=== PATIENT | female | born 1955 | race American Indian/Alaskan Native ===

== ENCOUNTER 2021-12-07 20:47 | Inpatient (IN) | payer MEDICARE ==
[2021-12-07 21:39] LABS: Hematocrit 35.6 % (30.3-42.9); Hemoglobin 11.6 gm/dl (10.1-14.3); Mean Corpuscular HGB Conc 33 % (30-34); Mean Corpuscular Volume 82 fl (79-97); Platelet Count 216 K/mm3 (140-440); Red Blood Count 4.37 M/mm3 (3.65-5.03)
--- NOTE | 2021-12-07 21:46 | XRay Report ---
CHEST 1 VIEW 12/07/2021 9:25 PM INDICATION / CLINICAL INFORMATION: EDI. History of CHF, COPD, hypertension and morbid obesity. COMPARISON: None available. FINDINGS: SUPPORT DEVICES: None. HEART / MEDIASTINUM: The cardiac silhouette is mildly enlarged with central vascular congestion. LUNGS / PLEURA: There are mild generalized bilateral interstitial opacities along with probable bibas ilar atelectasis. No significant pleural effusion. No pneumothorax. ADDITIONAL FINDINGS: No significant additional findings. IMPRESSION: 1. Suspected acute exacerbation of CHF with possible early interstitial edema. Please correlate with the clinical findings. Signer Name: Ammon Elizalde MD Signed: 12/07/2021 9:41 PM Workstation Name: [id number]
[2021-12-07 21:58] LABS: Albumin 3.4 g/dL (3.9-5); Calcium 9.6 mg/dL (8.4-10.2)
--- NOTE | 2021-12-07 23:29 | Emergency Department Report ---
ED Shortness of Breath HPI - General Chief Complaint: Dyspnea/Respdistress Stated Complaint: EDI Time Seen by Provider: 12/07/21 21:36 Source: patient, EMS Mode of arrival: Stretcher Limitations: Other - History of Present Illness Initial Comments: 66-year-old female with history of CHF, COPD, hypertension who now presented with shortness of breath that started about 3 days ago now progressively getting worse. Patient is currently on Lasix and states that she has been taking it faithfully. According to EMS patient's oxygen level was 60% on presentation to the [place]. She was started on non nonrebreather with improvement in symptoms. Patient reports some nonproductive cough. No other modifying or associated factors reported. MD Complaint: shortness of breath - Related Data Allergies Allergy/AdvReac Type Severity Reaction Status Date / Time quinapril Allergy Swelling Verified 12/07/21 21:11 ED Review of Systems ROS: Stated complaint: EDI Other details as noted in HPI Comment: All other systems reviewed and negative Respiratory: cough, shortness of breath, SOB with exertion, SOB at rest ED Past Medical Hx - Past Medical History Previous Medical History?: Yes Hx Hypertension: Yes Hx Congestive Heart Failure: Yes Hx COPD: Yes Additional medical history: Morbid Obesity. Thyroid Disease - Surgical History Past Surgical History?: No - Social History Smoking Status: Never Smoker Substance Use Type: None ED Physical Exam - General Limitations: No Limitations, Other General appearance: alert, in no apparent distress - Head Head exam: Present: normal inspection - Eye Eye exam: Present: normal appearance Pupils: Present: normal accommodation - ENT ENT exam: Present: normal exam, normal orophraynx, mucous membranes moist - Neck Neck exam: Present: normal inspection, full ROM. Absent: tenderness - Respiratory Respiratory exam: Present: other (Distant heart sound) - Cardiovascular Cardiovascular Exam: Present: regular rate, normal rhythm, other (Distant heart sounds) - GI/Abdominal GI/Abdominal exam: Present: soft, normal bowel sounds. Absent: tenderness - Extremities Exam Extremities exam: Present: normal inspection, normal capillary refill. Absent: tenderness - Back Exam Back exam: Absent: tenderness - Neurological Exam Neurological exam: Present: alert, oriented X3 - Psychiatric Psychiatric exam: Present: normal affect - Skin Skin exam: Present: warm, normal color ED Course Vital Signs 12/07/21 12/07/21 12/07/21 20:55 21:16 21:17 Temperature 98 F 100 F H Pulse Rate 111 H 105 H Respiratory 18 18 Rate Blood Pressure 143/89 Blood Pressure 109/67 [Right] O2 Sat by Pulse 95 96 Oximetry 12/07/21 12/07/21 12/07/21 21:30 21:46 22:00 Temperature Pulse Rate 104 H 109 H 105 H Respiratory 22 25 H 21 Rate Blood Pressure 108/74 127/63 144/77 Blood Pressure [Right] O2 Sat by Pulse 97 84 99 Oximetry 12/07/21 12/07/21 12/07/21 22:16 22:30 22:46 Temperature Pulse Rate 106 H 103 H 105 H Respiratory 25 H 26 H 25 H Rate Blood Pressure 139/78 145/82 128/58 Blood Pressure [Right] O2 Sat by Pulse 98 98 98 Oximetry 12/07/21 12/07/21 12/07/21 23:00 23:12 23:30 Temperature Pulse Rate 104 H 102 H 101 H Respiratory 22 22 24 Rate Blood Pressure 129/66 143/75 132/78 Blood Pressure [Right] O2 Sat by Pulse 97 98 97 Oximetry 12/08/21 12/08/21 12/08/21 00:00 00:30 01:00 Temperature Pulse Rate 102 H 99 H 99 H Respiratory 21 23 20 Rate Blood Pressure 129/76 132/78 141/75 Blood Pressure [Right] O2 Sat by Pulse 98 95 94 Oximetry 12/08/21 12/08/21 12/08/21 01:30 02:00 02:30 Temperature Pulse Rate 99 H 97 H 100 H Respiratory 20 20 21 Rate Blood Pressure 122/84 136/75 137/79 Blood Pressure [Right] O2 Sat by Pulse 98 97 91 Oximetry 12/08/21 03:00 Temperature Pulse Rate 100 H Respiratory 22 Rate Blood Pressure 124/76 Blood Pressure [Right] O2 Sat by Pulse 94 Oximetry - Reevaluation(s) Reevaluation #1: 12/07/21 23:27 here with sob with h/o CHF and COPD -- noted with distance heart sound -- will go ahead and get dyspnea workup and treat-- Reevaluation #2: 12/07/21 23:33 CXR noted with possible CHF with early vascular congestion--coupled with elevated BNP at 4313, troponin at 0.098 and BUN at 46 over 1.5 which likely contributed to the exacerbation. Will go ahead and give Laxis 40 mg IV x 1-- and breathing treatment-- 12/08/21 03:42 Considering this to be the only visit and record available -- will go ahead and admit to Dr Devries for further evaluation-- who accept pt ED Medical Decision Making - Lab Data Result diagrams: 12/07/21 21:23 12/07/21 21:23 Critical care attestation.: If time is entered above; I have spent that time in minutes in the direct care of this critically ill patient, excluding procedure time. ED Disposition Clinical Impression: Dyspnea Qualifiers: Dyspnea type: unspecified Qualified Code(s): R06.00 - Dyspnea, unspecified CHF exacerbation Qualifiers: Heart failure type: unspecified Qualified Code(s): I50.9 - Heart failure, unspecified Disposition: 09 ADMITTED INPATIENT Is pt being admited?: Yes Does the pt Need Aspirin: No Condition: Stable Time of Disposition: 03:44 (Dr Devries consulted who accept pt)
[2021-12-07] MEDS ORDERED: FUROSEMIDE 40 MG/4 ML INJ IV ONE (23:35)
[2021-12-07 23:36] LABS: Basophils % (Manual) 0 % (0.0-1.8); Eosinophils % (Manual) 0 % (0.0-4.3); Total Cells Counted 100
[2021-12-07 23:37] LABS: Anisocytosis 1+; Giant Platelets Rare; Large Platelets Few; Platelet Estimate Consistent w Auto
[2021-12-08] MEDS ORDERED: MORPHINE 2 MG/1 ML INJ IV PRN ×3 (03:45→05:19)
[2021-12-08] MEDS ORDERED: ONDANSETRON 4 MG/2 ML INJ IV PRN ×2 (03:45→05:19)
[2021-12-08] MEDS ORDERED: ACETAMINOPHEN 325 MG TAB PO PRN (03:45)
[2021-12-08] MEDS ORDERED: MORPHINE 4 MG/1 ML INJ IV PRN (05:19)
[2021-12-08] MEDS ORDERED: MAGNESIUM HYDROXIDE (MOM) ORAL LIQD UDC PO PRN (05:19)
--- NOTE | 2021-12-08 05:31 | History and Physical Report ---
History of Present Illness Date of examination: 12/08/21 Date of admission: 12/08/21 03:45 Chief complaint: Shortness of breath History of present illness: 66-year-old female with known history of CHF, COPD, hypertension presenting to the emergency room via EMS today complaining of shortness of breath has been getting progressively worse. She indicates she has been compliant with her medications. In route to the hospital patient's oxygen saturation was about 60%. She was subsequently placed on nonrebreather with some improvement. She complains of some mild cough but denies any chest pain. Denies any nausea or vomiting, denies any fever or chills. Work-up in the emergency room today, lab reveals a BUN of 46 and creatinine 1.5. Troponin of 0.098, BNP of 4313. Chest x-ray suggest acute exacerbation of CHF. Past History Past Medical History: COPD, heart failure, hypertension, hypothyroidism, other (Morbid obesity) Past Surgical History: No surgical history Social history: no significant social history Family history: no significant family history Medications and Allergies Allergies Allergy/AdvReac Type Severity Reaction Status Date / Time quinapril Allergy Swelling Verified 12/07/21 21:11 Active Meds: Active Medications Acetaminophen (Acetaminophen 325 Mg Tab) 650 mg PO Q4H PRN PRN Reason: Pain MILD(1-3)/Fever >100.5/HENDRIX Morphine Sulfate (Morphine 2 Mg/1 Ml Inj) 2 mg IV Q4H PRN PRN Reason: Pain, Moderate (4-6) Ondansetron HCl (Ondansetron 4 Mg/2 Ml Inj) 4 mg IV Q8H PRN PRN Reason: Nausea And Vomiting Sodium Chloride (Sodium Chloride 0.9% 10 Ml Flush Syringe) 10 ml IV BID SHANELL Sodium Chloride (Sodium Chloride 0.9% 10 Ml Flush Syringe) 10 ml IV PRN PRN PRN Reason: LINE FLUSH Review of Systems Constitutional: no fever, no chills Ears, nose, mouth and throat: no nasal congestion, no sore throat Cardiovascular: no chest pain, no palpitations Respiratory: shortness of breath, no cough Gastrointestinal: no nausea, no vomiting, no diarrhea Genitourinary Female: no flank pain, no dysuria, no hematuria Musculoskeletal: no neck pain, no low back pain Integumentary: no rash, no pruritis Neurological: no headaches, no confusion Psychiatric: no anxiety, no depression Endocrine: no polyphagia, no polydipsia, no polyuria, no nocturia Exam - Constitutional Vitals: Temp Pulse Resp BP Pulse Ox 100 F H 100 H 22 124/76 94 12/07/21 21:17 12/08/21 03:00 12/08/21 03:00 12/08/21 03:00 12/08/21 03:00 General appearance: Present: no acute distress, well-nourished, obese - EENT Eyes: Present: PERRL, EOM intact. Absent: scleral icterus ENT: hearing intact, clear oral mucosa, dentition normal - Neck Neck: Present: normal ROM - Respiratory Respiratory effort: normal Respiratory: bilateral: rales - Cardiovascular Rhythm: regular Heart Sounds: Present: S1 & S2, gallop. Absent: systolic murmur, diastolic m urmur, rub, click - Extremities Extremities: no ischemia, pulses intact, pulses symmetrical, normal temperature, normal color, Full ROM Extremity abnormal: edema (2+ ankle edema) Peripheral Pulses: within normal limits - Abdominal General gastrointestinal: Present: soft, non-tender - Integumentary Integumentary: Present: clear, warm, dry, normal turgor. Absent: rash - Musculoskeletal Musculoskeletal: strength equal bilaterally - Psychiatric Psychiatric: appropriate mood/affect, intact judgment & insight, memory intact, cooperative - Neurologic Neurologic: CNII-XII intact, no focal deficits, moves all extremities HEART Score - HEART Score Troponin: Troponin T 0.098 ng/mL (0.00-0.029) H 12/07/21 21: Results - Labs CBC & Chem 7: 12/07/21 21:23 12/07/21 21:23 Labs: Abnormal lab results 12/07/21 12/07/21 12/07/21 Range/Units 21:23 21: 21: WBC 14.1 H (4.5-11.0) K/mm3 MCH 27 L (28-32) pg Seg Neuts % (Manual) 84.0 H (40.0-70.0) % Nucleated RBC % 4.0 H (0.0-0.9) % Seg Neutrophils # Man 11.8 H (1.8-7.7) K/mm3 Sodium 146 H (137-145) mmol/L BUN 46 H (7-17) mg/dL Creatinine 1.5 H (0.6-1.2) mg/dL Glucose 137 H (65-100) mg/dL Total Bilirubin 1.60 H (0.1-1.2) mg/dL AST 98 H (5-40) units/L Alkaline Phosphatase 191 H (35-129) units/L Troponin T 0.098 H (0.00-0.029) ng/mL NT-Pro-B Natriuret Pep 4313 H (0-900) pg/mL Albumin 3.4 L (3.9-5) g/dL Assessment and Plan - Patient Problems (1) CHF exacerbation Current Visit: Yes Status: Acute Qualifiers: Heart failure type: unspecified Qualified Code(s): I50.9 - Heart failure, unspecified Plan to address problem: Patient placed on diuretics. We will monitor input and output and also monitor daily weight. We will schedule for echocardiogram. Consult placed to cardiology for evaluation. (2) Hypertension Current Visit: Yes Status: Acute Plan to address problem: We will resume routine home medications and monitor vital signs closely. (3) RAMA (acute kidney injury) Current Visit: Yes Status: Acute Plan to address problem: Baseline BUN and creatinine unknown. Consult nephrology for evaluation. (4) DVT prophylaxis Current Visit: Yes Status: Acute Plan to address problem: Patient placed on subcutaneous heparin. (5) Full code status Current Visit: Yes Status: Acute Plan to address problem: Patient is full code.
--- NOTE | 2021-12-08 08:07 | Progress Note ---
Assessment and Plan Assessment and plan: Acute versus acute on chronic congestive heart failure: unknown ejection fraction patient has elevated proBNP findings of congestive heart failure on chest x-ray elevated troponin IV diuretics beta-blockers input output monitoring Daily weights low-sodium diet and fluid restriction follow echocardiogram for LV function ejection fraction follow cardiology evaluation and recommendations Elevated troponin/non-ST elevation VA probably type II Closely monitor cardiac enzymes, serial EKGs, follow echocardiogram Continue aspirin beta-blockers JOSÉ ANTONIO inhibitors nitrates and statins Cardiology consulted Acute kidney injury; vasomotor nephropathy Monitor renal function, avoid nephrotoxin, consult nephrology if no improvement Also consider renal ultrasound Elevated LFTs/probably secondary to liver congestion Patient does not have any history of alcohol use Closely monitor Dyslipidemia : Low-cholesterol diet Patient's LFTs are high unable to give statin Closely monitor History of hypothyroidism ; Resume home Synthroid Closely monitor check thyroid functions morbid obesity; BMI 67.0; Patient may need dietary modification, exercise as tolerated and weight reduction when he is medically stable His weight partly secondary to fluid overload and congestive heart failure Treat the underlying cause. Full CODE STATUS; DVT prophylaxis; Subcu Lovenox renal dose Advance care plan: Patient is in severe distress, patient's diagnosis discussed with the patient Patient reports discussed with the patient, treatment plan explained to the patient Cardiology consultation and nephrology consultation recommendations discussed with the patient Patient also started on nebulizers, tapering dose of IV steroids, risks and benefits discussed with the patient Answered all the patient's questions and addressed all the concerns. Additional time 30 minutes Prolonged care inpatient: 35 minutes History Interval history: I have seen and examined the patient at the bedside this afternoon Patient's chart and medications reviewed Morbidly obese female patient in no acute respiratory failure requiring supplemental oxygen Patient is severely hypoxemic on Ventimask 15 L 40% saturating 98% Vital signs reviewed Hospitalist Physical - Constitutional Vitals: Temp Pulse Resp BP Pulse Ox 97.2 F L 91 H 18 117/72 98 12/08/21 05:49 12/08/21 05:49 12/08/21 05:49 12/08/21 05:49 12/08/21 05:49 General appearance: Present: no acute distress, well-nourished, obese - EENT Eyes: Present: PERRL, EOM intact - Neck Neck: Present: supple, normal ROM - Respiratory Respiratory effort: normal Respiratory: bilateral: CTA, diminished - Cardiovascular Rhythm: regular Heart Sounds: Present: S1 & S2 - Extremities Extremities: no ischemia, pulses intact, pulses symmetrical - Abdominal General gastrointestinal: soft, non-tender, non-distended, normal bowel sounds - Integumentary Integumentary: Present: clear, warm - Psychiatric Psychiatric: appropriate mood/affect, cooperative - Neurologic Neurologic: CNII-XII intact, moves all extremities HEART Score - HEART Score Troponin: Troponin T 0.098 ng/mL (0.00-0.029) H 12/07/21 21: Results - Labs CBC & Chem 7: 12/07/21 21:23 12/08/21 09:41 Labs: Laboratory Last Values WBC 14.1 K/mm3 (4.5-11.0) H 12/07/21 21: RBC 4.37 M/mm3 (3.65-5.03) 12/07/21 21: Hgb 11.6 gm/dl (10.1-14.3) 12/07/21 21: Hct 35.6 % (30.3-42.9) 12/07/21 21: MCV 82 fl (79-97) 12/07/21 21: MCH 27 pg (28-32) L 12/07/21 21: MCHC 33 % (30-34) 12/07/21 21: RDW 15.0 % (13.2-15.2) 12/07/21 21: Plt Count 216 K/mm3 (140-440) 12/07/21 21:23 Add Manual Diff Complete 12/07/21 21: Total Counted 100 12/07/21 21: Seg Neuts % (Manual) 84.0 % (40.0-70.0) H 12/07/21 21: Band Neutrophils % 0 % 12/07/21 21: Lymphocytes % (Manual) 14.0 % (13.4-35.0) 12/07/21 21: Reactive Lymphs % (Man) 0 % 12/07/21 21: Monocytes % (Manual) 2.0 % (0.0-7.3) 12/07/21 21: Eosinophils % (Manual) 0 % (0.0-4.3) 12/07/21 21: Basophils % (Manual) 0 % (0.0-1.8) 12/07/21: Metamyelocytes % 0 % 12/07/21 21: Myelocytes % 0 % 12/07/21 21: Promyelocytes % 0 % 12/07/21 21: Blast Cells % 0 % 12/07/21 21: Nucleated RBC % 4.0 % (0.0-0.9) H 12/07/21 21: Seg Neutrophils # Man 11.8 K/mm3 (1.8-7.7) H 12/07/21 21: Band Neutrophils # 0.0 K/mm3 12/07/21 21: Lymphocytes # (Manual) 2.0 K/mm3 (1.2-5.4) 12/07/21 21: Abs React Lymphs (Man) 0.0 K/mm3 12/07/21 21: Monocytes # (Manual) 0.3 K/mm3 (0.0-0.8) 12/07/21 21: Eosinophils # (Manual) 0.0 K/mm3 (0.0-0.4) 12/07/21 21: Basophils # (Manual) 0.0 K/mm3 (0.0-0.1) 12/07/21 21: Metamyelocytes # 0.0 K/mm3 12/07/21 21: Myelocytes # 0.0 K/mm3 12/07/21 21: Promyelocytes # 0.0 K/mm3 12/07/21 21: Blast Cells # 0.0 K/mm3 12/07/21 21:23 WBC Morphology Not Reportable 12/07/21 21:23 Hypersegmented Neuts Not Reportable 12/07/21 21:23 Hyposegmented Neuts Not Reportable 12/07/21 21:23 Hypogranular Neuts Not Reportable 12/07/21 21:23 Smudge Cells Not Reportable 12/07/21 21:23 Toxic Granulation Not Reportable 12/07/21 21:23 Toxic Vacuolation Not Reportable 12/07/21 21:23 Dohle Bodies Not Reportable 12/07/21 21:23 Pelger-Huet Anomaly Not Reportable 12/07/21 21:23 Fernanda Rods Not Reportable 12/07/21 21:23 Platelet Estimate Consistent w auto 12/07/21 21:23 Clumped Platelets Not Reportable 12/07/21 21:23 Plt Clumps, EDTA Not Reportable 12/07/21 21:23 Large Platelets Few 12/07/21 21:23 Giant Platelets Rare 12/07/21 21:23 Platelet Satelliting Not Reportable 12/07/21 21:23 Plt Morphology Comment Not Reportable 12/07/21 21:23 RBC Morphology Not Reportable 12/07/21 21:23 Dimorphic RBCs Not Reportable 12/07/21 21:23 Polychromasia Not Reportable 12/07/21 21:23 Hypochromasia Not Reportable 12/07/21 21:23 Poikilocytosis Not Reportable 12/07/21 21:23 Anisocytosis 1+ 12/07/21 21:23 Microcytosis Not Reportable 12/07/21 21:23 Macrocytosis Not Reportable 12/07/21 21:23 Spherocytes Not Reportable 12/07/21 21:23 Pappenheimer Bodies Not Reportable 12/07/21 21:23 Sickle Cells Not Reportable 12/07/21 21:23 Target Cells Not Reportable 12/07/21 21:23 Tear Drop Cells Not Reportable 12/07/21 21:23 Ovalocytes Not Reportable 12/07/21 21:23 Helmet Cells Not Reportable 12/07/21 21:23 [place] Bodies Not Reportable 12/07/21 21:23 [place] Rings Not Reportable 12/07/21 21:23 Ronni Cells Not Reportable 12/07/21 21:23 Bite Cells Not Reportable 12/07/21 21:23 Crenated Cell Not Reportable 12/07/21 21:23 Elliptocytes Not Reportable 12/07/21 21:23 Acanthocytes (Spur) Not Reportable 12/07/21 21:23 Rouleaux Not Reportable 12/07/21 21:23 Hemoglobin C Crystals Not Reportable 12/07/21 21:23 Schistocytes Not Reportable 12/07/21 21:23 Malaria parasites Not Reportable 12/07/21 21:23 Aftab Bodies Not Reportable 12/07/21 21:23 Hem Pathologist Commnt No 12/07/21 21:23 Sodium 146 mmol/L (137-145) H 12/07/21 21:23 Potassium 3.8 mmol/L (3.6-5.0) 12/07/21 21: Chloride 102.4 mmol/L (98-107) 12/07/21 21: Carbon Dioxide 22 mmol/L (22-30) 12/07/21 21: Anion Gap 25 mmol/L 12/07/21 21:23 BUN 46 mg/dL (7-17) H 12/07/21 21:23 Creatinine 1.5 mg/dL (0.6-1.2) H 12/07/21 21:23 Estimated GFR 35 ml/min 12/07/21 21: BUN/Creatinine Ratio 31 % 12/07/21 21:23 Glucose 137 mg/dL (65-100) H 12/07/21 21: Calcium 9.6 mg/dL (8.4-10.2) 12/07/21 21: Total Bilirubin 1.60 mg/dL (0.1-1.2) H 12/07/21 21: AST 98 units/L (5-40) H 12/07/21 21: ALT 39 units/L (7-56) 12/07/21 21: Alkaline Phosphatase 191 units/L (35-129) H 12/07/21 21:23 Troponin T 0.098 ng/mL (0.00-0.029) H 12/07/21 21:23 NT-Pro-B Natriuret Pep 4313 pg/mL (0-900) H 12/07/21 21:23 Total Protein 6.9 g/dL (6.3-8.2) 12/07/21 21: Albumin 3.4 g/dL (3.9-5) L 12/07/21 21:23 Albumin/Globulin Ratio 1.0 % 12/07/21 21:23 Verma/IV: Voiding Method External Female Catheter Active Medications - Current Medications Current Medications: Generic Name Dose Route Start Last Admin Trade Name Freq PRN Reason Stop Dose Admin Acetaminophen 650 mg 12/08/21 05:19 Acetaminophen 325 Mg Tab PO Q4H PRN Pain MILD(1-3)/Fever >100.5/HENDRIX Furosemide 40 mg 12/08/21 06:00 Furosemide 40 Mg/4 Ml Inj IV BID@0600,1800 SHANELL Magnesium Hydroxide 30 ml 12/08/21 05:19 Magnesium Hydroxide (Mom) Oral Liqd Udc PO Q4H PRN Constipation Morphine Sulfate 2 mg 12/08/21 05:19 Morphine 2 Mg/1 Ml Inj IV Q4H PRN Pain, Moderate (4-6) Morphine Sulfate 4 mg 12/08/21 05:19 Morphine 4 Mg/1 Ml Inj IV Q4H PRN Pain , Severe (7-10) Morphine Sulfate 2 mg 12/08/21 05:19 Morphine 2 Mg/1 Ml Inj IV Q5MIN PRN Chest Pain unrelieved by NTG Ondansetron HCl 4 mg 12/08/21 05:19 Ondansetron 4 Mg/2 Ml Inj IV Q8H PRN Nausea And Vomiting Sodium Chloride 10 ml 12/08/21 10:00 Sodium Chloride 0.9% 10 Ml Flush Syringe IV BID SHANELL Sodium Chloride 10 ml 12/08/21 05:19 Sodium Chloride 0.9% 10 Ml Flush Syringe IV PRN PRN LINE FLUSH
[2021-12-08] MEDS: FUROSEMIDE 40 MG/4 ML INJ IV SCH ×2 (09:06→17:32)
[2021-12-08 10:20] LABS: Albumin 3.4 g/dL (3.9-5); Calcium 9.5 mg/dL (8.4-10.2)
[2021-12-08 10:39] LABS: Chol/HDL Ratio 10.36 %
--- NOTE | 2021-12-08 12:19 | Consultation ---
History of Present Illness Consult date: 12/08/21 Consult reason: congestive heart failure History of present illness: 59-year-old obese -[place] female presenting with shortness of breath. Her chest x-ray shows cardiomegaly with pulmonary vascular congestion. Patient admitted with diagnosis of congestive heart failure. Past History Past Medical History: COPD, heart failure, hypertension, hypothyroidism, other (Morbid obesity) Past Surgical History: No surgical history Social history: no significant social history Family history: no significant family history Medications and Allergies Allergies Allergy/AdvReac Type Severity Reaction Status Date / Time quinapril Allergy Swelling Verified 12/07/21 21:11 Home Medications Medication Instructions Recorded Confirmed Last Taken Type Meloxicam 7.5 mg PO BID 12/08/21 12/08/21 12/07/21 History Metolazone 5 mg PO DAILY 12/08/21 12/08/21 12/06/21 History Oxycodone 5 mg PO Q4H PRN 12/08/21 12/08/21 12/05/21 History Torsemide 100 mg PO DAILY 12/08/21 12/08/21 12/07/21 History amLODIPine 10 mg PO DAILY 12/08/21 12/08/21 12/06/21 History Active Meds: Active Medications Acetaminophen (Acetaminophen 325 Mg Tab) 650 mg PO Q4H PRN PRN Reason: Pain MILD(1-3)/Fever >100.5/HENDRIX Furosemide (Furosemide 40 Mg/4 Ml Inj) 40 mg IV BID@0600,1800 SHANELL Last Admin: 12/08/21 09:06 Dose: 40 mg Magnesium Hydroxide (Magnesium Hydroxide (Mom) Oral Liqd Udc) 30 ml PO Q4H PRN PRN Reason: Constipation Morphine Sulfate (Morphine 2 Mg/1 Ml Inj) 2 mg IV Q4H PRN PRN Reason: Pain, Moderate (4-6) Morphine Sulfate (Morphine 4 Mg/1 Ml Inj) 4 mg IV Q4H PRN PRN Reason: Pain , Severe (7-10) Morphine Sulfate (Morphine 2 Mg/1 Ml Inj) 2 mg IV Q5MIN PRN PRN Reason: Chest Pain unrelieved by NTG Ondansetron HCl (Ondansetron 4 Mg/2 Ml Inj) 4 mg IV Q8H PRN PRN Reason: Nausea And Vomiting Sodium Chloride (Sodium Chloride 0.9% 10 Ml Flush Syringe) 10 ml IV BID SHANELL Last Admin: 12/08/21 09:06 Dose: 10 ml Sodium Chloride (Sodium Chloride 0.9% 10 Ml Flush Syringe) 10 ml IV PRN PRN PRN Reason: LINE FLUSH Review of Systems Constitutional: no weight loss, no weight gain, no fatigue, no weakness Ears, nose, mouth and throat: no deferred, no ear pain, no ear discharge Breasts: normal Cardiovascular: no chest pain, no orthopnea Respiratory: cough, cough with sputum, no hemoptysis, no shortness of breath Gastrointestinal: no abdominal pain, no nausea, no vomiting Genitourinary Female: no dyspareunia Rectal: no pain, no incontinence, no bleeding Musculoskeletal: no neck stiffness, no neck pain, no shooting arm pain, no arm numbness/tingling, no low back pain Integumentary: no rash, no pruritis, no redness Neurological: no paralysis, no weakness, no parathesias Psychiatric: no anxiety, no change in appetite Endocrine: no cold intolerance, no heat intolerance, no polyphagia Hematologic/Lymphatic: no easy bruising, no easy bleeding Allergic/Immunologic: no urticaria, no allergic rhinitis, no wheezing Physical Examination Vital Signs Temp Pulse Resp BP Pulse Ox 98 F 111 H 18 143/89 95 12/07/21 20:55 12/07/21 20:55 12/07/21 20:55 12/07/21 20:55 12/07/21 20:55 General appearance: no acute distress, obese HEENT: Positive: PERRL, Normocephaly, Mucus Membranes Moist Neck: Positive: neck supple, trachea midline. Negative: JVD/HJR Cardiac: Positive: Regular Rate, S1/S2, PMI, Dilated, Laterally Displaced Lungs: Positive: clear to auscultation, No Wheeze, Rales, Rhonchi Neuro: Positive: Grossly Intact Abdomen: Positive: Unremarkable, Soft, Active Bowel Sounds Extremities: Present: +1 Edema Results 12/07/21 21:23 12/08/21 09:41 Cardiac Enzymes 12/07/21 12/08/21 Range/Units 21:23 09:41 AST 98 H 99 H (5-40) units/L Lipids 12/08/21 Range/Units 09:41 Triglycerides 310 H (2-149) mg/dL Cholesterol 259 H (50-199) mg/dL HDL Cholesterol 25 L (40-59) mg/dL Cholesterol/HDL Ratio 10.36 % CBC 12/07/21 Range/Units 21:23 WBC 14.1 H (4.5-11.0) K/mm3 RBC 4.37 (3.65-5.03) M/mm3 Hgb 11.6 (10.1-14.3) gm/dl Hct 35.6 (30.3-42.9) % Plt Count 216 (140-440) K/mm3 Comprehensive Metabolic Panel 12/07/21 12/08/21 Range/Units 21:23 09:41 Sodium 146 H 145 (137-145) mmol/L Potassium 3.8 4.2 (3.6-5.0) mmol/L Chloride 102.4 104.0 (98-107) mmol/L Carbon Dioxide 22 25 (22-30) mmol/L BUN 46 H 56 H (7-17) mg/dL Creatinine 1.5 H 1.4 H (0.6-1.2) mg/dL Glucose 137 H 171 H (65-100) mg/dL Calcium 9.6 9.5 (8.4-10.2) mg/dL Direct Bilirubin Cancelled AST 98 H 99 H (5-40) units/L ALT 39 49 (7-56) units/L Alkaline Phosphatase 191 H 232 H (35-129) units/L Total Protein 6.9 6.8 (6.3-8.2) g/dL Albumin 3.4 L 3.4 L (3.9-5) g/dL Assessment and Plan 1. Acute systolic heart failure 2. Essential hypertension 3. Chronic renal disease unspecified 4. Hypothyroidism 5. Morbid obesity. Plan. Patient is currently stable. We will continue diuresing. Echocardiogram to assess global and regional left ventricular systolic function. Treatment as per GDMT
--- NOTE | 2021-12-08 14:11 | Consultation ---
History of Present Illness - History of Present Illness Thank you for the consultation ! Patient was evaluated today, My assessment and plan are as follows #Renal failure in a patient who 66-year-old with known history of COPD hype rtension heart failure admitted here with worsening renal failure and pulmonary vascular congestion, with ongoing use of meloxicam and torsemide, creatinine upon admission was 1.5 with a sodium of 146 and as of today creatinine remains at 1.6. Avoid concurrent use of torsemide and meloxicam preferably I would avoid meloxicam altogether Patiently monitor renal function, no old records of creatinine in our system here. Urinalysis did not show any evidence of significant proteinuria but patient has 11 red blood cell with 1+ bacteria Would like to get a straight cath specimen Suggest avoiding any further use of nonsteroidal drug, #Hypernatremia mild currently improved Hyperbilirubinemia,? Congestive heart failure? NSAID induced currently improving check hepatitis profile Elevated liver enzyme most likely resulting from passive congestion from congestive heart failure, monitor ALT AST closely, stable for now check coagulation studies, Patient is to primarily work on risk factor modifications and lifestyle changes close follow-up upon discharge in a week or 2, She is allergic to JOSÉ ANTONIO inhibitor, Can consider a cautious trial of spironolactone in the outpatient setting at a later date. Patient needs thorough education about CKD as well as CHF management, advised her to get further education from our website and attached links such as [employer] #Congestive heart failure with COPD pending ejection fraction estimation, f you have any question in regards to this patient renal care please feel free to contact me at [phone] Author: Sidney Major M.D. [facility], [address] [place] [address] Tel; [phone] Platter History of present illness Past medical history: 60-year-old female admitted here with worsening of congestive heart failure noted to have elevated creatinine of 1.4-1.6, urinalysis shows 11 red blood cells, creatinine relatively stable current estimated GFR in the range of 35 to 45 cc per minute, normal records in our system, elevated bilirubin at 1.6 but currently improving alkaline phosphate has worsened. Current allergies: Reviewed from the current chart Social history: Reviewed from the current chart Family history: Reviewed from the current chart Review of system: Positive for shortness of breath, All other review of systems negative Physical examination Vitals: Reviewed General: No acute distress HEENT: Oral mucosa moist no pallor or icterus Neck: Supple without any JVD thyromegaly or nodular mass Chest: Bilateral few crackles prolonged expiratory phase Heart: Regular rate and rhythm S1-S2 heard no S3-S4 Abdomen: Soft nontender, bowel sounds present no renal bruit no suprapubic masses no CVA tenderness noted Extremity: Minimal edema dry skin no peripheral cyanosis Endocrine: Thyroid not enlarged Psychiatric: No agitation and aggression noted Musculoskeletal: No joint effusion noted Labs and x-rays: Reviewed from this admission Past History Past Medical History: COPD, heart failure, hypertension, hypothyroidism, other (Morbid obesity) Past Surgical History: No surgical history Social history: no significant social history Family history: no significant family history Medications and Allergies Allergies Allergy/AdvReac Type Severity Reaction Status Date / Time quinapril Allergy Swelling Verified 12/07/21 21:11 Home Medications Medication Instructions Recorded Confirmed Last Taken Type Levothyroxine 100 mcg PO DAILY 12/08/21 12/08/21 12/06/21 History Meloxicam 7.5 mg PO BID 12/08/21 12/08/21 12/07/21 History Metolazone 5 mg PO DAILY 12/08/21 12/08/21 12/06/21 History Oxycodone 5 mg PO Q4H PRN 12/08/21 12/08/21 12/05/21 History Torsemide 100 mg PO DAILY 12/08/21 12/08/21 12/07/21 History amLODIPine 10 mg PO DAILY 12/08/21 12/08/21 12/06/21 History Active Meds: Active Medications Acetaminophen (Acetaminophen 325 Mg Tab) 650 mg PO Q4H PRN PRN Reason: Pain MILD(1-3)/Fever >100.5/HENDRIX Furosemide (Furosemide 40 Mg/4 Ml Inj) 40 mg IV BID@0600,1800 SHANELL Last Admin: 12/08/21 09:06 Dose: 40 mg Magnesium Hydroxide (Magnesium Hydroxide (Mom) Oral Liqd Udc) 30 ml PO Q4H PRN PRN Reason: Constipation Morphine Sulfate (Morphine 2 Mg/1 Ml Inj) 2 mg IV Q4H PRN PRN Reason: Pain, Moderate (4-6) Morphine Sulfate (Morphine 4 Mg/1 Ml Inj) 4 mg IV Q4H PRN PRN Reason: Pain , Severe (7-10) Morphine Sulfate (Morphine 2 Mg/1 Ml Inj) 2 mg IV Q5MIN PRN PRN Reason: Chest Pain unrelieved by NTG Ondansetron HCl (Ondansetron 4 Mg/2 Ml Inj) 4 mg IV Q8H PRN PRN Reason: Nausea And Vomiting Sodium Chloride (Sodium Chloride 0.9% 10 Ml Flush Syringe) 10 ml IV BID SHANELL Last Admin: 12/08/21 09:06 Dose: 10 ml Sodium Chloride (Sodium Chloride 0.9% 10 Ml Flush Syringe) 10 ml IV PRN PRN PRN Reason: LINE FLUSH Exam - Vital Signs Vital signs: Vital Signs Temp Pulse Resp BP Pulse Ox 98 F 111 H 18 143/89 95 12/07/21 20:55 12/07/21 20:55 12/07/21 20:55 12/07/21 20:55 12/07/21 20:55 Results - Lab Results 12/09/21 05:45 12/09/21 05:45 Most recent lab results Calcium 9.5 mg/dL (8.4-10.2) 12/08/21 09:41
[2021-12-08] MEDS ORDERED: IPRATROPIUM/ALBUTEROL SULFATE 3 ML AMPUL.NEB IH SCH (16:30)
[2021-12-08 17:16] LABS: Bacteria,Urine 1+ /HPF (Negative); Bilirubin,Urine NEG (Negative); Blood,Urine SM (Negative); Color,Urine Amber (Yellow); Mucus,Urine FEW /HPF
[2021-12-08] MEDS ORDERED: ALBUTEROL 2.5 MG/3 ML NEBU IH PRN ×2 (17:56→18:00)
[2021-12-08] MEDS: IPRATROPIUM/ALBUTEROL SULFATE 3 ML AMPUL.NEB IH SCH (20:21)
[2021-12-08] MEDS: ARFORMOTEROL 15 MCG/2 ML NEBU IH SCH (20:37)
[2021-12-08] MEDS: BUDESONIDE 0.5 MG/2 ML NEBU IH SCH (20:37)
[2021-12-08] MEDS: methylPREDNISolone Sod Succinate 125 MG/2 ML INJ IV SCH (21:18)
[2021-12-08] MEDS: ACETAMINOPHEN 325 MG TAB PO PRN (21:19)
[2021-12-08 22:27] LABS: C-Reactive Protein 38.6 mg/dL (0.00-1.30)
[2021-12-09] MEDS: MELOXICAM 7.5 MG TAB PO SCH ×4 (02:05→22:40)
[2021-12-09] MEDS: IPRATROPIUM/ALBUTEROL SULFATE 3 ML AMPUL.NEB IH SCH ×4 (02:50→20:35)
[2021-12-09] MEDS: LEVOTHYROXINE 100 MCG TAB PO SCH (05:57)
[2021-12-09] MEDS: FUROSEMIDE 40 MG/4 ML INJ IV SCH ×2 (05:57→17:12)
[2021-12-09] MEDS: methylPREDNISolone Sod Succinate 125 MG/2 ML INJ IV SCH ×3 (05:57→22:41)
[2021-12-09 06:10] LABS: Hematocrit 37.4 % (30.3-42.9); Hemoglobin 11.8 gm/dl (10.1-14.3); Mean Corpuscular HGB Conc 32 % (30-34); Mean Corpuscular Volume 82 fl (79-97); Red Blood Count 4.56 M/mm3 (3.65-5.03)
[2021-12-09 06:13] LABS: Platelet Count 213 K/mm3 (140-440)
[2021-12-09 06:28] LABS: Calcium 10.1 mg/dL (8.4-10.2)
[2021-12-09 07:55] LABS: Anisocytosis 1+; Band Neutrophils # (Manual) 0.2 K/mm3; Basophils % (Manual) 0 % (0.0-1.8); Eosinophils % (Manual) 0 % (0.0-4.3); Hypochromasia 1+; Total Cells Counted 100
[2021-12-09 07:56] LABS: Platelet Estimate Consistent w Auto
[2021-12-09] MEDS: BUDESONIDE 0.5 MG/2 ML NEBU IH SCH ×2 (08:50→20:35)
[2021-12-09] MEDS: ARFORMOTEROL 15 MCG/2 ML NEBU IH SCH ×2 (08:50→20:35)
[2021-12-09] MEDS: ASPIRIN EC 325 MG TAB PO SCH (09:43)
[2021-12-09] MEDS ORDERED: METOLAZONE 5 MG PO SCH (10:00)
--- NOTE | 2021-12-09 12:10 | Electrocardiograph Report ---
[facility] Test Date: 2021-12-07 Test Time: 21:01:52 Pat Name: LYN PEREZ Department: Room: A451 1 Gender: F Clinical Specialist Vascular: rojas : 1955 Requested By: ALFONSO NOEL Order Number: [id number] Reading MD: Gamaliel Bishop Measurements Intervals [place] Rate: 104 P: 77 KS: 174 QRS: -35 QRSD: 86 T: 56 QT: 340 QTc: 448 Interpretive Statements Sinus tachycardia Probable left atrial enlargement Left axis deviation Probable lateral infarct, old No previous ECG available for comparison Electronically Signed On 12-09-2021 12:09:39 EDT by Gamaliel Bishop
--- NOTE | 2021-12-09 12:52 | Progress Note ---
Assessment and Plan 1. Acute systolic heart failure 2. Essential hypertension 3. Chronic renal disease unspecified 4. Hypothyroidism 5. Morbid obesity. Plan. Patient is stable echocardiogram shows normal left ventricular size and function with mild left ventricular diastolic dysfunction grade 1. Patient's congestive heart failure likely secondary to fluid overload from chronic renal insufficiency. There is equal vocal elevation of serum troponin level secondary to decreased clearance. And elevated liver function tests which could be secondary to hepatic congestion. Nephrology consult note appreciated continue diuresis as per nephrology recommendation. Lexiscan thallium scan will be done prior to discharge to rule out underlying ischemic coronary artery disease Subjective Date of service: 12/09/21 Interval history: Patient complains of shortness of breath. And she also has a cough which is nonproductive Objective Vital Signs Temp Pulse Pulse Resp Resp BP BP 12/09/21 12:00 12/09/21 10:53 98.6 F 80 18 101/46 12/09/21 08:50 12/09/21 07:30 98.0 F 83 18 153/84 12/09/21 07:00 81 12/09/21 04:11 98.4 F 80 16 142/70 12/09/21 00:11 98.1 F 88 17 141/61 12/09/21 00:00 17 12/08/21 23:34 86 151/75 12/08/21 22:14 83 12/08/21 21:00 12/08/21 20:35 98.5 F 83 18 128/75 12/08/21 20:22 83 18 12/08/21 17:52 12/08/21 17:00 83 20 12/08/21 15:14 85 12/08/21 15:13 98.9 F 82 18 117/71 Pulse Ox 12/09/21 12:00 95 12/09/21 10:53 96 12/09/21 08:50 95 12/09/21 07:30 98 12/09/21 07:00 12/09/21 04:11 97 12/09/21 00:11 95 12/09/21 00:00 93 12/08/21 23:34 95 12/08/21 22:14 12/08/21 21:00 97 12/08/21 20:35 98 12/08/21 20:22 100 12/08/21 17:52 98 12/08/21 17:00 98 12/08/21 15:14 12/08/21 15:13 98 - Physical Examination General: Other (obese) HEENT: Positive: PERRL, Normocephaly, Mucus Membranes Moist Neck: Positive: neck supple, trachea midline. Negative: JVD/HJR Cardiac: Positive: Regular Rate, S1/S2, PMI, Laterally Displaced. Negative: S3, S4 Lungs: Positive: Rhonchi Neuro: Positive: Grossly Intact Abdomen: Positive: Unremarkable, Soft, Active Bowel Sounds Extremities: Present: +1 Edema - Labs and Meds Cardiac Enzymes 12/08/21 Range/Units 20:37 Lactate Dehydrogenase 344 H (91-180) units/L CBC 12/09/21 Range/Units 05:45 WBC 19.6 H (4.5-11.0) K/mm3 RBC 4.56 (3.65-5.03) M/mm3 Hgb 11.8 (10.1-14.3) gm/dl Hct 37.4 (30.3-42.9) % Plt Count 213 (140-440) K/mm3 Comprehensive Metabolic Panel 12/09/21 Range/Units 05:45 Sodium 142 (137-145) mmol/L Potassium 3.8 (3.6-5.0) mmol/L Chloride 101.2 (98-107) mmol/L Carbon Dioxide 22 (22-30) mmol/L BUN 67 H (7-17) mg/dL Creatinine 1.6 H (0.6-1.2) mg/dL Glucose 159 H (65-100) mg/dL Calcium 10.1 (8.4-10.2) mg/dL
--- NOTE | 2021-12-09 18:29 | Progress Note ---
Assessment and Plan Assessment and plan: --Acute versus acute on chronic congestive heart failure: unknown ejection fraction patient has elevated proBNP findings of congestive heart failure on chest x-ray elevated troponin IV diuretics beta-blockers input output monitoring Daily weights low-sodium diet and fluid restriction follow echocardiogram for LV function ejection fraction follow cardiology evaluation and recommendations --Acute on chronic hypoxic respiratory failure Likely due to underlying obesity hypoventilation syndrome, chronic CHF Patient on 2 L nasal cannula O2 at home Wean off O2 as tolerated, nebs as needed --Elevated troponin/non-ST elevation [place] probably type II Closely monitor cardiac enzymes, serial EKGs, follow echocardiogram Continue aspirin beta-blockers JOSÉ ANTONIO inhibitors nitrates and statins Cardiology consulted --Acute kidney injury; vasomotor nephropathy Monitor renal function, avoid nephrotoxin, consult nephrology if no improvement Also consider renal ultrasound --Elevated LFTs/probably secondary to liver congestion Patient does not have any history of alcohol use Closely monitor --Dyslipidemia : Low-cholesterol diet Patient's LFTs are high unable to give statin Closely monitor --History of hypothyroidism ; Resume home Synthroid Closely monitor check thyroid functions --morbid obesity; BMI 67.0; Patient may need dietary modification, exercise as tolerated and weight reduction when he is medically stable His weight partly secondary to fluid overload and congestive heart failure Treat the underlying cause. --Oral thrush, placed on nystatin swish and swallow --Full CODE STATUS; --DVT prophylaxis; Subcu Lovenox renal dose --Advance care plan: Patient is in severe distress, patient's diagnosis discussed with the patient Patient reports discussed with the patient, treatment plan explained to the patient Cardiology consultation and nephrology consultation recommendations discussed with the patient Patient also started on nebulizers, tapering dose of IV steroids, risks and benefits discussed with the patient Continue diuresis and monitor BMP. Added nystatin swish and swallow for oral thrush Plan for stress test before discharge per cardiology Answered all the patient's questions and addressed all the concerns. Additional time 30 minutes Subjective Date of service: 12/09/21 Interval history: Patient seen and examined. Medical records and medication list reviewed. No acute event overnight noted by the RN. Patient continued to complains of difficulty breathing. Patient is tolerating diet. Patient also complains of oral thrush Discussed plan of care at bedside with patient. Objective - Exam Narrative Exam: General appearance: Present: no acute distress, well-nourished, obese - EENT Eyes: Present: PERRL, EOM intact - Neck Neck: Present: supple, normal ROM - Respiratory Respiratory effort: normal Respiratory: bilateral: CTA, diminished - Cardiovascular Rhythm: regular Heart Sounds: Present: S1 & S2 - Extremities Extremities: no ischemia, pulses intact, pulses symmetrical - Abdominal General gastrointestinal: soft, non-tender, non-distended, normal bowel sounds - Integumentary Integumentary: Present: clear, warm - Psychiatric Psychiatric: appropriate mood/affect, cooperative - Neurologic Neurologic: CNII-XII intact, moves all extremities - Constitutional Vitals: Vital Signs - 12hr 12/09/21 12/09/21 12/09/21 07:00 07:30 08:50 Temperature 98.0 F Pulse Rate 81 83 Pulse Rate [ Bilateral] Respiratory 18 Rate Respiratory Rate [Bilateral ] Blood Pressure 153/84 O2 Sat by Pulse 98 95 Oximetry 12/09/21 12/09/21 12/09/21 10:53 12:00 14:00 Temperature 98.6 F Pulse Rate 80 Pulse Rate [ 89 Bilateral] Respiratory 18 Rate Respiratory 18 Rate [Bilateral ] Blood Pressure 101/46 O2 Sat by Pulse 96 95 Oximetry 12/09/21 12/09/21 15:00 15:18 Temperature 98.6 F Pulse Rate 100 H 79 Pulse Rate [ Bilateral] Respiratory 18 Rate Respiratory Rate [Bilateral ] Blood Pressure 126/63 O2 Sat by Pulse 97 Oximetry - Labs CBC & Chem 7: 12/09/21 05:45 12/09/21 05:45 Labs: Abnormal lab results 12/08/21 12/08/21 12/08/21 Range/Units 20:37 20:37 20:37 WBC (4.5-11.0) K/mm3 MCH (28-32) pg Seg Neuts % (Manual) (40.0-70.0) % Lymphocytes % (Manual) (13.4-35.0) % Nucleated RBC % (0.0-0.9) % Seg Neutrophils # Man (1.8-7.7) K/mm3 D-Dimer > 2000 H (0-234) ng/mlDDU BUN (7-17) mg/dL Creatinine (0.6-1.2) mg/dL Glucose (65-100) mg/dL Ferritin 1347.0 H (10.0-200.0) ng/mL Lactate Dehydrogenase 344 H (91-180) units/L C-Reactive Protein 38.60 H (0.00-1.30) mg/dL 12/09/21 12/09/21 Range/Units 05:45 05:45 WBC 19.6 H (4.5-11.0) K/mm3 MCH 26 L (28-32) pg Seg Neuts % (Manual) 87.0 H (40.0-70.0) % Lymphocytes % (Manual) 11.0 L (13.4-35.0) % Nucleated RBC % 3.0 H (0.0-0.9) % Seg Neutrophils # Man 17.1 H (1.8-7.7) K/mm3 D-Dimer (0-234) ng/mlDDU BUN 67 H (7-17) mg/dL Creatinine 1.6 H (0.6-1.2) mg/dL Glucose 159 H (65-100) mg/dL Ferritin (10.0-200.0) ng/mL Lactate Dehydrogenase (91-180) units/L C-Reactive Protein (0.00-1.30) mg/dL HEART Score - HEART Score Troponin: Troponin T 0.047 ng/mL (0.00-0.029) H D 12/08/21 09:41
[2021-12-09] MEDS: NYSTATIN 500,000 UNIT/5 ML ORAL LIQD PO SCH (22:41)
[2021-12-10] MEDS: IPRATROPIUM/ALBUTEROL SULFATE 3 ML AMPUL.NEB IH SCH ×6 (02:55→20:45)
[2021-12-10] MEDS: LEVOTHYROXINE 100 MCG TAB PO SCH (05:19)
[2021-12-10] MEDS: FUROSEMIDE 40 MG/4 ML INJ IV SCH ×2 (05:19→18:05)
[2021-12-10] MEDS: methylPREDNISolone Sod Succinate 125 MG/2 ML INJ IV SCH (05:20)
[2021-12-10] MEDS ORDERED: REGADENOSON 0.4 MG/5 ML INJ IV ONE (08:17)
--- NOTE | 2021-12-10 08:19 | Progress Note ---
Subjective Interval history: Assessment and plan #Renal failure, creatinine currently at 1.6 patient does have some risk factors for underlying chronic kidney disease, renal function appears to be stable no major electrolyte abnormalities, Patient is negative for COVID-19 Urinalysis shows 30 mg protein in the urine, Will need to follow-up on the urinalysis in the outpatient setting #Congestive heart failure needs to work on dietary modification lifestyle changes BMI currently 67, will need follow-up with cardiology primary care physician as well as in our office in a week or 2 upon discharge Patient was adequately counseled and educated regarding all the renal related issues, relevant renal related labs were also discussed and all questions were answered If there are any renal related issues in regards to this patient please feel f ree to reach out without any hesitation at [phone] We'll continue to follow and make recommendation for renal standpoint. Progress note by: Sidney Major MD [address] [place] [id number] Tele [phone] [email or web address] Patient was seen today for follow-up of multiple renal related issues No complaints of any chest pain pressure or shortness of breath Interdisciplinary notes that also reviewed She is feeling better currently getting breathing treatment, Not aware of having any issues with chronic kidney disease in the outpatient setting but is aware that she has not been the best of her health Events of 24 hours vitals labs intake output medications were reviewed Past medical history: Reviewed Family history: Reviewed Social history: Reviewed Allergies: Reviewed Physical examination: Vitals: Reviewed HEENT: No pallor or icterus oral mucosa moist Neck: Supple no JVD no thyromegaly Chest: Bilateral clear to auscultation anteriorly Heart: Regular rate and rhythm S1-S2 heard no S3-S4 Abdomen: Soft nontender no voluntary guarding rigidity rebound Extremity: Dry skin less than 1+ peripheral edema Psychiatric: No evidence of agitation and aggression noted Dermatology: No petechial rashes Labs and x-rays: Reviewed from today Objective - Vital Signs Vital signs: Vital Signs - 12hr 12/09/21 12/09/21 12/09/21 20:35 21:28 22:38 Temperature 98.5 F Pulse Rate 91 H Pulse Rate [ 72 Bilateral] Respiratory 22 Rate Respiratory 18 Rate [Bilateral ] Blood Pressure 129/62 O2 Sat by Pulse 99 97 90 Oximetry 12/10/21 12/10/21 02:56 04:19 Temperature 97.6 F Pulse Rate 84 Pulse Rate [ 81 Bilateral] Respiratory 18 Rate Respiratory 18 Rate [Bilateral ] Blood Pressure 123/64 O2 Sat by Pulse 93 Oximetry - Lab 12/10/21 18:44 12/10/21 18:44 Most recent lab results Calcium 10.1 mg/dL (8.4-10.2) 12/09/21 05:45 Medications & Allergies - Medications Allergies/Adverse Reactions: Allergies quinapril Allergy (Verified 12/07/21 21:11) Swelling Home Medications: Home Medications Medication Instructions Recorded Confirmed Last Taken Type Levothyroxine 100 mcg PO DAILY 12/08/21 12/08/21 12/06/21 History Meloxicam 7.5 mg PO BID 12/08/21 12/08/21 12/07/21 History Metolazone 5 mg PO DAILY 12/08/21 12/08/21 12/06/21 History Oxycodone 5 mg PO Q4H PRN 12/08/21 12/08/21 12/05/21 History Torsemide 100 mg PO DAILY 12/08/21 12/08/21 12/07/21 History amLODIPine 10 mg PO DAILY 12/08/21 12/08/21 12/06/21 History Active Medications: Generic Name Dose Route Start Last Admin Trade Name Freq PRN Reason Stop Dose Admin Acetaminophen 650 mg 12/08/21 05:19 12/08/21 21:19 Acetaminophen 325 Mg Tab PO 650 mg Q4H PRN Administration Pain MILD(1-3)/Fever >100.5/HENDRIX Albuterol 2.5 mg 12/08/21 17:56 Albuterol 2.5 Mg/3 Ml Nebu IH Q4HRT PRN Shortness Of Breath Albuterol/Ipratropium 1 ampul 12/08/21 20:00 12/10/21 02:56 Ipratropium/Albuterol Sulfate 3 Ml Ampul.Neb IH 1 ampul Q6HRT SHANELL Administration Arformoterol Tartrate 15 mcg 12/08/21 20:00 12/09/21 20:35 Arformoterol 15 Mcg/2 Ml Nebu IH Not Given Q12HRT SHANELL Aspirin 325 mg 12/09/21 10:00 12/09/21 09:43 Aspirin Ec 325 Mg Tab PO 325 mg QDAY SHANELL Administration Budesonide 0.5 mg 12/08/21 20:00 12/09/21 20:35 Budesonide 0.5 Mg/2 Ml Nebu IH 0.5 mg Q12HRT SHANELL Administration Furosemide 40 mg 12/08/21 06:00 12/10/21 05:19 Furosemide 40 Mg/4 Ml Inj IV 40 mg BID@0600,1800 [facility] Administration Levothyroxine Sodium 100 mcg 12/09/21 06:00 12/10/21 05:19 Levothyroxine 100 Mcg Tab PO 100 mcg DAILY@0600 [facility] Administration Magnesium Hydroxide 30 ml 12/08/21 05:19 Magnesium Hydroxide (Mom) Oral Liqd Udc PO Q4H PRN Constipation Methylprednisolone Sodium Succinate 60 mg 12/08/21 22:00 12/10/21 05:20 Methylprednisolone Sod Succinate 125 Mg/2 Ml Inj IV 60 mg Q8HR SHANELL Administration Morphine Sulfate 2 mg 12/08/21 05:19 Morphine 2 Mg/1 Ml Inj IV Q4H PRN Pain, Moderate (4-6) Morphine Sulfate 4 mg 12/08/21 05:19 Morphine 4 Mg/1 Ml Inj IV Q4H PRN Pain , Severe (7-10) Morphine Sulfate 2 mg 12/08/21 05:19 Morphine 2 Mg/1 Ml Inj IV Q5MIN PRN Chest Pain unrelieved by NTG Nystatin 500,000 unit 12/09/21 20:00 12/09/21 22:41 Nystatin 500,000 Unit/5 Ml Oral Liqd PO 500,000 unit TID [facility] Administration Ondansetron HCl 4 mg 12/08/21 05:19 Ondansetron 4 Mg/2 Ml Inj IV Q8H PRN Nausea And Vomiting Regadenoson 0.4 mg 12/10/21 08:17 Regadenoson 0.4 Mg/5 Ml Inj IV 12/10/21 08:18 ONCE ONE Sodium Chloride 10 ml 12/08/21 10:00 12/09/21 22:41 Sodium Chloride 0.9% 10 Ml Flush Syringe IV 10 ml BID SHANELL Administration Sodium Chloride 10 ml 12/08/21 05:19 Sodium Chloride 0.9% 10 Ml Flush Syringe IV PRN PRN LINE FLUSH
[2021-12-10] MEDS: BUDESONIDE 0.5 MG/2 ML NEBU IH SCH ×3 (08:44→20:45)
[2021-12-10] MEDS: ARFORMOTEROL 15 MCG/2 ML NEBU IH SCH ×3 (08:44→20:45)
[2021-12-10] MEDS: NYSTATIN 500,000 UNIT/5 ML ORAL LIQD PO SCH ×3 (10:54→20:52)
[2021-12-10] MEDS: ASPIRIN EC 325 MG TAB PO SCH (10:59)
--- NOTE | 2021-12-10 13:01 | Progress Note ---
Assessment and Plan - Patient Problems (1) CHF exacerbation Current Visit: Yes Status: Acute Qualifiers: Heart failure type: unspecified Qualified Code(s): I50.9 - Heart failure, unspecified Subjective Date of service: 12/10/21 Interval history: FEELS BETTER Objective Vital Signs Temp Pulse Pulse Resp Resp BP Pulse Ox 12/10/21 12:45 98.2 F 88 120/43 94 12/10/21 11:40 85 20 12/10/21 11:08 97 12/10/21 10:40 97 12/10/21 09:22 89 173/81 93 12/10/21 09:19 75 111/40 93 12/10/21 09:04 118/42 12/10/21 04:19 97.6 F 84 18 123/64 93 12/10/21 02:56 81 18 12/09/21 22:38 98.5 F 91 H 22 129/62 90 12/09/21 21:28 97 12/09/21 20:35 72 18 99 12/09/21 15:18 98.6 F 79 18 126/63 97 12/09/21 15:00 100 H 12/09/21 14:00 89 18 - Physical Examination General: Other (obese) HEENT: Positive: PERRL, Normocephaly, Mucus Membranes Moist Neck: Positive: neck supple, trachea midline, JVD/HJR Cardiac: Positive: Reg Rate and Rhythm Lungs: Positive: clear to auscultation Neuro: Positive: Grossly Intact Abdomen: Positive: Unremarkable, Soft, Active Bowel Sounds Extremities: Present: edema (TR.)
--- NOTE | 2021-12-10 13:38 | Progress Note ---
Assessment and Plan Assessment and plan: --Acute versus acute on chronic congestive heart failure: unknown ejection fraction patient has elevated proBNP findings of congestive heart failure on chest x-ray elevated troponin IV diuretics beta-blockers input output monitoring Daily weights low-sodium diet and fluid restriction follow echocardiogram for LV function ejection fraction follow cardiology evaluation and recommendations --Acute on chronic hypoxic respiratory failure Likely due to underlying obesity hypoventilation syndrome, chronic CHF Patient on 2 L nasal cannula O2 at home Wean off O2 as tolerated, nebs as needed --Elevated troponin/non-ST elevation [place] probably type II Closely monitor cardiac enzymes, serial EKGs, follow echocardiogram Continue aspirin beta-blockers JOSÉ ANTONIO inhibitors nitrates and statins Cardiology consulted --Acute kidney injury; vasomotor nephropathy Monitor renal function, avoid nephrotoxin, consult nephrology if no improvement Also consider renal ultrasound --Elevated LFTs/probably secondary to liver congestion Patient does not have any history of alcohol use Closely monitor --Dyslipidemia : Low-cholesterol diet Patient's LFTs are high unable to give statin Closely monitor --History of hypothyroidism ; Resume home Synthroid Closely monitor check thyroid functions --morbid obesity; BMI 67.0; Patient may need dietary modification, exercise as tolerated and weight reduction when he is medically stable His weight partly secondary to fluid overload and congestive heart failure Treat the underlying cause. --Oral thrush, placed on nystatin swish and swallow --Full CODE STATUS; --DVT prophylaxis; Subcu Lovenox renal dose --Advance care plan: Patient is in severe distress, patient's diagnosis discussed with the patient Patient reports discussed with the patient, treatment plan explained to the patient Cardiology consultation and nephrology consultation recommendations discussed with the patient Patient had a stress test today which showed fixed inferior defect, no further intervention recommended by the cardiology Patient also stated that she lives by her self and unable to take care of herself by her own care transitions manager consulted for SNF placement, PT consulted Answered all the patient's questions and addressed all the concerns. Additional time 30 minutes Subjective Date of service: 12/10/21 Interval history: Patient seen and examined. Medical records and medication list reviewed. No acute event overnight noted by the RN. Patient continued to complains of difficulty breathing. Patient is tolerating diet. Patient states that she lives by herself and unable to take care of herself by her own S/p stress test today with fixed inferior defect Discussed plan of care at bedside with patient. Objective - Exam Narrative Exam: General appearance: Present: no acute distress, well-nourished, obese - EENT Eyes: Present: PERRL, EOM intact - Neck Neck: Present: supple, normal ROM - Respiratory Respiratory effort: normal Respiratory: bilateral: CTA, diminished - Cardiovascular Rhythm: regular Heart Sounds: Present: S1 & S2 - Extremities Extremities: no ischemia, pulses intact, pulses symmetrical - Abdominal General gastrointestinal: soft, non-tender, non-distended, normal bowel sounds - Integumentary Integumentary: Present: clear, warm - Psychiatric Psychiatric: appropriate mood/affect, cooperative - Neurologic Neurologic: CNII-XII intact, moves all extremities - Constitutional Vitals: Vital Signs - 12hr 12/10/21 12/10/21 12/10/21 02:56 04:19 09:04 Temperature 97.6 F Pulse Rate 84 Pulse Rate [ 81 Bilateral] Respiratory 18 Rate Respiratory 18 Rate [Bilateral ] Blood Pressure 123/64 118/42 O2 Sat by Pulse 93 Oximetry 12/10/21 12/10/21 12/10/21 09:19 09:22 10:40 Temperature Pulse Rate 75 89 Pulse Rate [ Bilateral] Respiratory Rate Respiratory Rate [Bilateral ] Blood Pressure 111/40 173/81 O2 Sat by Pulse 93 93 97 Oximetry 12/10/21 12/10/21 12/10/21 11:08 11:40 12:45 Temperature 98.2 F Pulse Rate 88 Pulse Rate [ 85 Bilateral] Respiratory Rate Respiratory 20 Rate [Bilateral ] Blood Pressure 120/43 O2 Sat by Pulse 97 94 Oximetry - Labs CBC & Chem 7: 12/09/21 05:45 12/09/21 05:45 HEART Score - HEART Score Troponin: Troponin T 0.047 ng/mL (0.00-0.029) H D 12/08/21 09:41
--- NOTE | 2021-12-10 16:54 | Ultrasound Report ---
ULTRASOUND RENAL INDICATION / CLINICAL INFORMATION: renal failure. COMPARISON: None available. FINDINGS: RIGHT KIDNEY: Length = 12.8 cm. - Echogenicity: Normal. - Cortical Thickness: Normal. - Hydronephrosis: None. - Cyst / Mass: Lower pole hypoechoic lesion measuring up to 1.1 cm, likely cyst. - Stones: None seen. LEFT KIDNEY: Length = 12.5 cm. - Echogenicity: Normal. - Cortical Thickness: Normal. - Hydronephrosis: None. - Cyst / Mass: None. - Stones: None seen. URINARY BLADDER: The bladder is distended. FREE FLUID: None. ADDITIONAL FINDINGS: The liver is echogenic. IMPRESSION: 1. No acute renal abnormality or hydronephrosis. Likely small renal cyst at the lower pole of the rig ht kidney. 2. Hepatic steatosis. 3. Distended urinary bladder. Signer Name: Clark Mcnamara MD Signed: 12/10/2021 4:50 PM Workstation Name: [id number]
[2021-12-10 19:45] LABS: Hematocrit 33.9 % (30.3-42.9); Hemoglobin 11.1 gm/dl (10.1-14.3); Mean Corpuscular HGB Conc 33 % (30-34); Mean Corpuscular Volume 80 fl (79-97); Platelet Count 305 K/mm3 (140-440); Red Blood Count 4.24 M/mm3 (3.65-5.03)
[2021-12-10 19:54] LABS: Calcium 9.8 mg/dL (8.4-10.2)
[2021-12-11] MEDS: IPRATROPIUM/ALBUTEROL SULFATE 3 ML AMPUL.NEB IH SCH ×4 (03:43→20:29)
[2021-12-11] MEDS: FUROSEMIDE 40 MG/4 ML INJ IV SCH ×2 (06:41→17:06)
[2021-12-11] MEDS: LEVOTHYROXINE 100 MCG TAB PO SCH (06:41)
[2021-12-11] MEDS ORDERED: methylPREDNISolone Sod Succinate 125 MG/2 ML INJ IV SCH (08:00)
[2021-12-11] MEDS: BUDESONIDE 0.5 MG/2 ML NEBU IH SCH ×2 (08:23→20:29)
[2021-12-11] MEDS: ARFORMOTEROL 15 MCG/2 ML NEBU IH SCH ×2 (08:23→20:29)
[2021-12-11] MEDS: ASPIRIN EC 325 MG TAB PO SCH (09:15)
[2021-12-11] MEDS: NYSTATIN 500,000 UNIT/5 ML ORAL LIQD PO SCH ×3 (09:15→21:12)
--- NOTE | 2021-12-11 12:36 | Discharge Summary ---
Providers - Providers Date of Admission: 12/08/21 03:45 Date of discharge: 12/11/21 Attending physician: ROLAND SHIELDS 12/08/21 05:19 Consult to Physician [CONS] Routine Comment: Consulting Provider: PADMINI FARFAN Physician Instructions: Reason For Exam: CHF exacerbation 12/08/21 08:35 Consult to Physician [CONS] Routine Comment: Consulting Provider: JULIUS RUST Physician Instructions: Reason For Exam: RAMA 12/10/21 13:16 Physical Therapy Evaluation and Treat [CONS] Routine Comment: Reason For Exam: Debility Primary care physician: VICKIE NICHOLS Hospitalization Condition: Stable Hospital course: 66-year-old female with known history of CHF, COPD, hypertension presenting to the emergency room via EMS complaining of shortness of breath has been getting progressively worse. In route to the hospital patient's oxygen saturation was about 60%. She was subsequently placed on nonrebreather with some improvement. Work-up in the emergency room: lab reveals a BUN of 46 and creatinine 1.5. Troponin of 0.098, BNP of 4313. Chest x-ray suggest acute exacerbation of CHF. Patient was admitted to telemetry floor with scheduled iv diuretics. Monitored with serial CE, EKG. Cardiology consulted, 2d echo obtained. Provided cardiac diet, daily weights, monitored in's and O's. Her renal function was monitored, renal ultrasound revealed normal finding except small cyst on the right kidney. Patient was further evaluated and recommended for subacute rehab but she refused. Her myocardial stress test showed no reversible defects. Patients symptom improved with medical management. Patient was then discharged home in stable condition with outpt f/u. Disposition: HOME HEALTH CARE SERVICE Final Discharge Diagnosis (Prints w/discharge instructions): --Acute versus acute on chronic diastolic congestive heart failure: --Acute on chronic hypoxic respiratory failure. --Elevated troponin/non-ST elevation RI probably type II. --Acute kidney injury; vasomotor nephropathy. --Elevated LFTs/probably secondary to liver congestion. --Dyslipidemia : --History of hypothyroidism ;. --morbid obesity; BMI 67.0;. --Oral thrush, placed on nystatin swish and swallow Time spent for discharge: 34 minutes Core Measure Documentation - Palliative Care Palliative Care/ Comfort Measures: Not Applicable - Core Measures Any of the following diagnoses?: heart failure - Heart Failure Discharge Requirements JOSÉ ANTONIO/ARB for LVSD if EF <40%: Not Applicable Beta kaylee at discharge: Yes Exam - Physical Exam Narrative exam: General appearance: Present: no acute distress, well-nourished, obese - EENT Eyes: Present: PERRL, EOM intact - Neck Neck: Present: supple, normal ROM - Respiratory Respiratory effort: normal Respiratory: bilateral: CTA, diminished - Cardiovascular Rhythm: regular Heart Sounds: Present: S1 & S2 - Extremities Extremities: no ischemia, pulses intact, pulses symmetrical - Abdominal General gastrointestinal: soft, non-tender, non-distended, normal bowel sounds - Integumentary Integumentary: Present: clear, warm - Psychiatric Psychiatric: appropriate mood/affect, cooperative - Neurologic Neurologic: CNII-XII intact, moves all extremities - Constitutional Vitals: Temp Pulse Resp BP Pulse Ox 98.5 F 74 18 138/68 97 12/11/21 08:11 12/11/21 08:20 12/11/21 10:00 12/11/21 08:11 12/11/21 10:00 Plan Activity: advance as tolerated Weight Bearing Status: Non-Weight Bearing Diet: low fat, low salt Follow up with: VICKIE NICHOLS MD [Primary Care Provider] - 3-5 Days JOSEPHINE BANDA MD [Staff Physician] - 7 Days Prescriptions: AtorvaSTATin [Lipitor] 40 mg PO QHS #30 tablet Aspirin EC [Halfprin EC] 81 mg PO QDAY #30 tablet.dr Glover [Nystatin SUSP] 500,000 unit PO TID 5 Days
--- NOTE | 2021-12-11 16:40 | Progress Note ---
Assessment and Plan - Patient Problems (1) CHF exacerbation Current Visit: Yes Status: Acute Qualifiers: Heart failure type: unspecified Qualified Code(s): I50.9 - Heart failure, unspecified Subjective Date of service: 12/11/21 Interval history: sob improved..r. foot pain Objective Vital Signs Temp Pulse Pulse Resp Resp BP BP 12/11/21 16:19 12/11/21 14:30 96 H 18 12/11/21 12:25 98.3 F 85 136/47 12/11/21 10:00 18 12/11/21 08:29 12/11/21 08:20 74 18 12/11/21 08:11 98.5 F 83 138/68 12/11/21 07:15 79 12/11/21 03:39 98.1 F 84 19 120/51 12/11/21 02:00 82 22 12/10/21 23:00 76 12/10/21 22:00 12/10/21 20:47 83 20 12/10/21 19:37 98.1 F 80 20 106/50 Pulse Ox 12/11/21 16:19 94 12/11/21 14:30 12/11/21 12:25 95 12/11/21 10:00 97 12/11/21 08:29 97 12/11/21 08:20 12/11/21 08:11 96 12/11/21 07:15 12/11/21 03:39 99 12/11/21 02:00 12/10/21 23:00 12/10/21 22:00 97 12/10/21 20:47 12/10/21 19:37 97 - Physical Examination General: Other (obese) HEENT: Positive: PERRL, Normocephaly, Mucus Membranes Moist Neck: Positive: neck supple, trachea midline, JVD/HJR Cardiac: Positive: Reg Rate and Rhythm Lungs: Positive: clear to auscultation Neuro: Positive: Grossly Intact Abdomen: Positive: Unremarkable, Soft, Active Bowel Sounds Extremities: Present: Other (R.FOOT - CYST -PLANTAR SURFACE,,,GREAT TOE PAIN) - Labs and Meds CBC 12/10/21 Range/Units 18:44 WBC 14.5 H (4.5-11.0) K/mm3 RBC 4.24 (3.65-5.03) M/mm3 Hgb 11.1 (10.1-14.3) gm/dl Hct 33.9 (30.3-42.9) % Plt Count 305 (140-440) K/mm3 Comprehensive Metabolic Panel 12/10/21 Range/Units 18:44 Sodium 142 (137-145) mmol/L Potassium 3.6 (3.6-5.0) mmol/L Chloride 98.7 (98-107) mmol/L Carbon Dioxide 25 (22-30) mmol/L BUN 65 H (7-17) mg/dL Creatinine 1.1 (0.6-1.2) mg/dL Glucose 136 H (65-100) mg/dL Calcium 9.8 (8.4-10.2) mg/dL
[2021-12-11] MEDS: NAPROXEN 375 MG TAB PO PRN (17:39)
[2021-12-12] MEDS: IPRATROPIUM/ALBUTEROL SULFATE 3 ML AMPUL.NEB IH SCH ×4 (02:52→21:28)
[2021-12-12] MEDS: FUROSEMIDE 40 MG/4 ML INJ IV SCH ×2 (05:10→18:30)
[2021-12-12] MEDS: LEVOTHYROXINE 100 MCG TAB PO SCH (05:10)
[2021-12-12] MEDS: NAPROXEN 375 MG TAB PO PRN (05:53)
[2021-12-12] MEDS: NYSTATIN 500,000 UNIT/5 ML ORAL LIQD PO SCH ×3 (08:24→21:11)
[2021-12-12] MEDS: ARFORMOTEROL 15 MCG/2 ML NEBU IH SCH ×2 (09:27→21:28)
[2021-12-12] MEDS: BUDESONIDE 0.5 MG/2 ML NEBU IH SCH ×2 (09:27→21:27)
--- NOTE | 2021-12-12 09:44 | Progress Note ---
Assessment and Plan 1. Acute systolic heart failure 2. Essential hypertension 3. Chronic renal disease unspecified 4. Hypothyroidism 5. Morbid obesity. Plan. Patient is stable. Recommend outpatient evaluation with a exhaust emissions automotive technician. Continue present medication Subjective Date of service: 12/12/21 Interval history: Patient is stable denies any shortness of breath. Has some pain in the right foot which she has had for months. Objective Vital Signs Temp Pulse Pulse Resp Resp BP Pulse Ox 12/12/21 09:31 97 12/12/21 09:27 80 18 12/12/21 07:01 98.4 F 91 H 20 132/68 96 12/12/21 04:16 92 H 95 12/12/21 04:15 92 H 18 155/69 95 12/12/21 03:01 84 18 12/11/21 22:57 96 12/11/21 20:35 96 12/11/21 20:33 90 18 12/11/21 20:02 88 95 12/11/21 20:01 88 18 130/61 95 12/11/21 20:00 88 12/11/21 16:23 98.5 F 88 20 111/46 90 12/11/21 16:19 94 12/11/21 14:30 96 H 18 12/11/21 12:25 98.3 F 85 136/47 95 12/11/21 10:00 18 97 - Physical Examination General: Other (obese) HEENT: Positive: PERRL, Normocephaly, Mucus Membranes Moist Neck: Positive: neck supple, trachea midline, JVD/HJR Cardiac: Positive: Regular Rate, S1/S2, PMI, Laterally Displaced Lungs: Positive: clear to auscultation, No Wheeze, Rales, Rhonchi Neuro: Positive: Grossly Intact Abdomen: Positive: Unremarkable, Soft, Active Bowel Sounds Extremities: Present: Other (R.FOOT - CYST -PLANTAR SURFACE,,,GREAT TOE PAIN). Absent: edema
[2021-12-12] MEDS: ASPIRIN EC 325 MG TAB PO SCH (10:24)
--- NOTE | 2021-12-12 11:14 | Progress Note ---
Assessment and Plan Assessment and plan: --Acute versus acute on chronic congestive heart failure: unknown ejection fraction patient has elevated proBNP findings of congestive heart failure on chest x-ray elevated troponin IV diuretics beta-blockers input output monitoring Daily weights low-sodium diet and fluid restriction follow echocardiogram for LV function ejection fraction follow cardiology evaluation and recommendations --Acute on chronic hypoxic respiratory failure Likely due to underlying obesity hypoventilation syndrome, chronic CHF Patient on 2 L nasal cannula O2 at home Wean off O2 as tolerated, nebs as needed --Elevated troponin/non-ST elevation ID probably type II Closely monitor cardiac enzymes, serial EKGs, follow echocardiogram Continue aspirin beta-blockers JOSÉ ANTONIO inhibitors nitrates and statins Cardiology consulted --Acute kidney injury; vasomotor nephropathy Monitor renal function, avoid nephrotoxin, consult nephrology if no improvement Also consider renal ultrasound --Elevated LFTs/probably secondary to liver congestion Patient does not have any history of alcohol use Closely monitor --Dyslipidemia : Low-cholesterol diet Patient's LFTs are high unable to give statin Closely monitor --History of hypothyroidism ; Resume home Synthroid Closely monitor check thyroid functions --morbid obesity; BMI 67.0; Patient may need dietary modification, exercise as tolerated and weight reduction when he is medically stable His weight partly secondary to fluid overload and congestive heart failure Treat the underlying cause. --Oral thrush, placed on nystatin swish and swallow --Full CODE STATUS; --DVT prophylaxis; Subcu Lovenox renal dose --Advance care plan: Patient is in severe distress, patient's diagnosis discussed with the patient Patient reports discussed with the patient, treatment plan explained to the patient Cardiology consultation and nephrology consultation recommendations discussed with the patient Patient had a stress test which showed fixed inferior defect, no further intervention recommended by the cardiology Patient also stated that she lives by her self and unable to take care of herself by her own but initially refused subacute rehab versus SNF placement sugar plantation manager consulted for SNF placement, PT consulted. Patient's son encouraged for SNF placement and now patient is in agreement Answered all the patient's questions and addressed all the concerns. Patient clinically stable for discharge, discharge pending on SNF placement Subjective Date of service: 12/11/21 Interval history: Patient seen and examined. Medical records and medication list reviewed. No acute event overnight noted by the RN. Patient continued to complains of difficulty breathing. Patient is tolerating diet. Discussed plan of care at bedside with patient. Objective - Exam Narrative Exam: General appearance: Present: no acute distress, well-nourished, obese - EENT Eyes: Present: PERRL, EOM intact - Neck Neck: Present: supple, normal ROM - Respiratory Respiratory effort: normal Respiratory: bilateral: CTA, diminished - Cardiovascular Rhythm: regular Heart Sounds: Present: S1 & S2 - Extremities Extremities: no ischemia, pulses intact, pulses symmetrical - Abdominal General gastrointestinal: soft, non-tender, non-distended, normal bowel sounds - Integumentary Integumentary: Present: clear, warm - Psychiatric Psychiatric: appropriate mood/affect, cooperative - Neurologic Neurologic: CNII-XII intact, moves all extremities - Constitutional Vitals: Vital Signs - 12hr 12/12/21 12/12/21 12/12/21 03:01 04:15 04:16 Temperature Pulse Rate 92 H 92 H Pulse Rate [ 84 Bilateral] Respiratory 18 Rate Respiratory 18 Rate [Bilateral ] Blood Pressure 155/69 O2 Sat by Pulse 95 95 Oximetry 12/12/21 12/12/21 12/12/21 07:01 09:27 09:31 Temperature 98.4 F Pulse Rate 91 H Pulse Rate [ 80 Bilateral] Respiratory 20 Rate Respiratory 18 Rate [Bilateral ] Blood Pressure 132/68 O2 Sat by Pulse 96 97 Oximetry - Labs CBC & Chem 7: 12/10/21 18:44 12/10/21 18:44 HEART Score - HEART Score Troponin: Troponin T 0.047 ng/mL (0.00-0.029) H D 12/08/21 09:41
--- NOTE | 2021-12-12 11:16 | Progress Note ---
Assessment and Plan Assessment and plan: --Acute versus acute on chronic diastolic congestive heart failure: patient has elevated proBNP findings of congestive heart failure on chest x-ray s/p IV diuretics now changed to p.o. Continue beta-blockers input output monitoring Daily weights low-sodium diet and fluid restriction 2D echo showed preserved EF with diastolic dysfunction --Acute on chronic hypoxic respiratory failure Likely due to underlying obesity hypoventilation syndrome, chronic CHF Patient on 2 L nasal cannula O2 at home Wean off O2 as tolerated, nebs as needed --Elevated troponin/non-ST elevation [place] probably type II Closely monitor cardiac enzymes, serial EKGs, follow echocardiogram Continue aspirin beta-blockers JOSÉ ANTONIO inhibitors nitrates and statins Cardiology consulted, s/p stress test showed no reversible ischemia --Acute kidney injury; vasomotor nephropathy Monitor renal function, avoid nephrotoxin, consult nephrology if no improvement Normal findings on renal ultrasound --Elevated LFTs/probably secondary to liver congestion Patient does not have any history of alcohol use Closely monitor --Dyslipidemia : Low-cholesterol diet Patient's LFTs are high unable to give statin Closely monitor --History of hypothyroidism ; Resume home Synthroid Closely monitor check thyroid functions --morbid obesity; BMI 67.0; Patient may need dietary modification, exercise as tolerated and weight reduction when he is medically stable His weight partly secondary to fluid overload and congestive heart failure Treat the underlying cause. --Oral thrush, placed on nystatin swish and swallow --Full CODE STATUS; --DVT prophylaxis; Subcu Lovenox renal dose --Advance care plan: Patient is in severe distress, patient's diagnosis discussed with the patient Patient clinically stable for discharge, discharge pending on SNF placement Continue to provide supportive care Subjective Date of service: 12/12/21 Interval history: Patient seen and examined. Medical records and medication list reviewed. No acute event overnight noted by the RN. Patient continued to complains of difficulty breathing. Patient is tolerating diet. Discussed plan of care at bedside with patient. Objective - Exam Narrative Exam: General appearance: Present: no acute distress, well-nourished, obese - EENT Eyes: Present: PERRL, EOM intact - Neck Neck: Present: supple, normal ROM - Respiratory Respiratory effort: normal Respiratory: bilateral: CTA, diminished - Cardiovascular Rhythm: regular Heart Sounds: Present: S1 & S2 - Extremities Extremities: no ischemia, pulses intact, pulses symmetrical - Abdominal General gastrointestinal: soft, non-tender, non-distended, normal bowel sounds - Integumentary Integumentary: Present: clear, warm - Psychiatric Psychiatric: appropriate mood/affect, cooperative - Neurologic Neurologic: CNII-XII intact, moves all extremities - Constitutional Vitals: Vital Signs - 12hr 12/12/21 12/12/21 12/12/21 03:01 04:15 04:16 Temperature Pulse Rate 92 H 92 H Pulse Rate [ 84 Bilateral] Respiratory 18 Rate Respiratory 18 Rate [Bilateral ] Blood Pressure 155/69 O2 Sat by Pulse 95 95 Oximetry 12/12/21 12/12/21 12/12/21 07:01 09:27 09:31 Temperature 98.4 F Pulse Rate 91 H Pulse Rate [ 80 Bilateral] Respiratory 20 Rate Respiratory 18 Rate [Bilateral ] Blood Pressure 132/68 O2 Sat by Pulse 96 97 Oximetry - Labs CBC & Chem 7: 12/10/21 18:44 12/10/21 18:44 HEART Score - HEART Score Troponin: Troponin T 0.047 ng/mL (0.00-0.029) H D 12/08/21 09:41
[2021-12-12] MEDS: ACETAMINOPHEN 325 MG TAB PO PRN (23:31)
[2021-12-13] MEDS: IPRATROPIUM/ALBUTEROL SULFATE 3 ML AMPUL.NEB IH SCH ×4 (02:45→19:48)
[2021-12-13] MEDS: FUROSEMIDE 40 MG/4 ML INJ IV SCH (05:12)
[2021-12-13] MEDS: LEVOTHYROXINE 100 MCG TAB PO SCH (05:12)
[2021-12-13] MEDS: NYSTATIN 500,000 UNIT/5 ML ORAL LIQD PO SCH ×3 (08:21→21:46)
[2021-12-13] MEDS: ASPIRIN EC 325 MG TAB PO SCH (10:20)
[2021-12-13] MEDS: BUDESONIDE 0.5 MG/2 ML NEBU IH SCH ×2 (10:36→20:20)
[2021-12-13] MEDS: ARFORMOTEROL 15 MCG/2 ML NEBU IH SCH ×2 (10:37→20:20)
--- NOTE | 2021-12-13 11:07 | Progress Note ---
Assessment and Plan 1. Acute HFpEF ( mild diastolic heart failure present ) 2. Essential hypertension 3. Chronic renal disease unspecified 4. Hypothyroidism 5. Morbid obesity. Plan. Patient is stable. Salt restriction with treatment for Hypertension and to include regular diuresis. Recommend outpatient evaluation with a salesperson new cars. Continue present medication Subjective Date of service: 12/13/21 Interval history: Patient is stable denies any shortness of breath. Objective Vital Signs Temp Pulse Pulse Resp Resp BP BP 12/13/21 10:37 98.4 F 93 H 18 145/68 12/13/21 10:00 12/13/21 07:18 98.6 F 18 149/64 12/13/21 04:29 98.5 F 19 12/13/21 04:19 92 H 119/62 12/13/21 02:47 92 H 18 12/13/21 00:09 98.4 F 97 H 19 129/62 12/12/21 23:00 97 H 12/12/21 22:00 12/12/21 21:31 94 H 18 12/12/21 19:29 97.6 F 89 28 H 131/76 12/12/21 15:34 98.6 F 89 18 139/70 12/12/21 14:33 88 18 12/12/21 12:22 97.7 F 98 H 20 140/61 Pulse Ox 12/13/21 10:37 98 12/13/21 10:00 96 12/13/21 07:18 12/13/21 04:29 12/13/21 04:19 96 12/13/21 02:47 12/13/21 00:09 96 12/12/21 23:00 12/12/21 22:00 96 12/12/21 21:31 98 12/12/21 19:29 97 12/12/21 15:34 96 12/12/21 14:33 12/12/21 12:22 97 - Physical Examination General: Other (obese) HEENT: Positive: PERRL, Normocephaly, Mucus Membranes Moist Neck: Positive: neck supple, trachea midline, JVD/HJR Cardiac: Positive: Regular Rate, S1/S2, PMI, Laterally Displaced. Negative: S3 Lungs: Positive: clear to auscultation, No Wheeze, Rales, Rhonchi Neuro: Positive: Grossly Intact Abdomen: Positive: Unremarkable, Soft, Active Bowel Sounds Extremities: Present: Other (R.FOOT - CYST -PLANTAR SURFACE,,,GREAT TOE PAIN). Absent: edema
[2021-12-13 11:14] LABS: Hemoglobin 11.4 gm/dl (10.1-14.3); Mean Corpuscular HGB Conc 33 % (30-34); Mean Corpuscular Volume 79 fl (79-97); Platelet Count 348 K/mm3 (140-440); Red Cell Distribution Width 14.9 % (13.2-15.2)
[2021-12-13 11:37] LABS: Blood Urea Nitrogen 28 mg/dL (7-17); Calcium 9.4 mg/dL (8.4-10.2); Hemolysis Index 3
[2021-12-13 11:39] LABS: BUN/Creatinine Ratio 40
--- NOTE | 2021-12-13 12:15 | Progress Note ---
Assessment and Plan Assessment and plan: --Hypokalemia, likely due to diuresis Continue to replete potassium and monitor BMP --Acute versus acute on chronic diastolic congestive heart failure: patient has elevated proBNP findings of congestive heart failure on chest x-ray s/p IV diuretics now changed to p.o. Continue beta-blockers input output monitoring Daily weights low-sodium diet and fluid restriction 2D echo showed preserved EF with diastolic dysfunction --Acute on chronic hypoxic respiratory failure Likely due to underlying obesity hypoventilation syndrome, chronic CHF Patient on 2 L nasal cannula O2 at home Wean off O2 as tolerated, nebs as needed --Elevated troponin/non-ST elevation [place] probably type II Closely monitor cardiac enzymes, serial EKGs, follow echocardiogram Continue aspirin beta-blockers JOSÉ ANTONIO inhibitors nitrates and statins Cardiology consulted, s/p stress test showed no reversible ischemia --Acute kidney injury; vasomotor nephropathy Monitor renal function, avoid nephrotoxin, consult nephrology if no improvement Normal findings on renal ultrasound --Elevated LFTs/probably secondary to liver congestion Patient does not have any history of alcohol use Closely monitor --Dyslipidemia : Low-cholesterol diet Patient's LFTs are high unable to give statin Closely monitor --History of hypothyroidism ; Resume home Synthroid Closely monitor check thyroid functions --morbid obesity; BMI 67.0; Patient may need dietary modification, exercise as tolerated and weight reduction when he is medically stable His weight partly secondary to fluid overload and congestive heart failure Treat the underlying cause. --Oral thrush, placed on nystatin swish and swallow --Full CODE STATUS; --DVT prophylaxis; Subcu Lovenox renal dose --Advance care plan: Patient is in severe distress, patient's diagnosis discussed with the patient Serum potassium 2.9 today, will continue to replete and follow BMP. Change Lasix to p.o. Patient clinically stable for discharge, discharge pending on SNF placement Continue to provide supportive care Subjective Date of service: 12/13/21 Interval history: Patient seen and examined. Medical records and medication list reviewed. No acute event overnight noted by the RN. Patient continued to complains of difficulty breathing. Patient is tolerating diet. Discussed plan of care at bedside with patient. Objective - Exam Narrative Exam: General appearance: Present: no acute distress, well-nourished, obese - EENT Eyes: Present: PERRL, EOM intact - Neck Neck: Present: supple, normal ROM - Respiratory Respiratory effort: normal Respiratory: bilateral: CTA, diminished - Cardiovascular Rhythm: regular Heart Sounds: Present: S1 & S2 - Extremities Extremities: no ischemia, pulses intact, pulses symmetrical - Abdominal General gastrointestinal: soft, non-tender, non-distended, normal bowel sounds - Integumentary Integumentary: Present: clear, warm - Psychiatric Psychiatric: appropriate mood/affect, cooperative - Neurologic Neurologic: CNII-XII intact, moves all extremities - Constitutional Vitals: Vital Signs - 12hr 12/13/21 12/13/21 12/13/21 02:47 04:19 04:29 Temperature 98.5 F Pulse Rate 92 H Pulse Rate [ 92 H Bilateral] Respiratory 19 Rate Respiratory 18 Rate [Bilateral ] Blood Pressure 119/62 O2 Sat by Pulse 96 Oximetry 12/13/21 12/13/21 12/13/21 07:18 10:00 10:37 Temperature 98.6 F 98.4 F Pulse Rate 93 H Pulse Rate [ Bilateral] Respiratory 18 18 Rate Respiratory Rate [Bilateral ] Blood Pressure 149/64 145/68 O2 Sat by Pulse 96 98 Oximetry - Labs CBC & Chem 7: 12/13/21 10:34 12/14/21 04:31 Labs: Abnormal lab results 12/12/21 12/13/21 12/13/21 Range/Units 11:20 10:34 10:34 WBC 13.8 H (4.5-11.0) K/mm3 MCH 26 L (28-32) pg Potassium 2.9 L* (3.6-5.0) mmol/L Chloride 96.4 L (98-107) mmol/L Carbon Dioxide 32 H D (22-30) mmol/L BUN 28 H (7-17) mg/dL Glucose 111 H (65-100) mg/dL Uric Acid 15.4 H (3.5-7.6) mg/dL HEART Score - HEART Score Troponin: Troponin T 0.047 ng/mL (0.00-0.029) H D 12/08/21 09:41
[2021-12-13] MEDS: POTASSIUM CHLORIDE 10 MEQ 10 MEQ/100 ML BAG IV SCH ×3 (13:30→15:53)
[2021-12-13] MEDS ORDERED: SODIUM CHLORIDE 0.9% 1000 ML 1,000 ML IV SCH (14:15)
[2021-12-13] MEDS: POTASSIUM CHLORIDE ER 20 MEQ TAB PO SCH (14:15)
[2021-12-13] MEDS: ACETAMINOPHEN 325 MG TAB PO PRN (21:44)
[2021-12-14] MEDS: IPRATROPIUM/ALBUTEROL SULFATE 3 ML AMPUL.NEB IH SCH ×4 (02:08→20:37)
[2021-12-14] MEDS: LEVOTHYROXINE 100 MCG TAB PO SCH (06:03)
[2021-12-14 06:25] LABS: BUN/Creatinine Ratio 29; Blood Urea Nitrogen 23 mg/dL (7-17); Calcium 9.4 mg/dL (8.4-10.2); Hemolysis Index 0
[2021-12-14] MEDS: FUROSEMIDE 40 MG TAB PO SCH (09:23)
[2021-12-14] MEDS: ASPIRIN EC 325 MG TAB PO SCH (09:23)
[2021-12-14] MEDS: NYSTATIN 500,000 UNIT/5 ML ORAL LIQD PO SCH ×3 (09:23→21:58)
[2021-12-14] MEDS: POTASSIUM CHLORIDE ER 20 MEQ TAB PO SCH (09:24)
[2021-12-14] MEDS: BUDESONIDE 0.5 MG/2 ML NEBU IH SCH ×2 (09:52→20:36)
[2021-12-14] MEDS: ARFORMOTEROL 15 MCG/2 ML NEBU IH SCH ×2 (09:53→20:36)
[2021-12-14] MEDS: carvediloL 3.125 MG TAB PO SCH ×2 (09:58→21:58)
--- NOTE | 2021-12-14 11:13 | Progress Note ---
Assessment and Plan 1. Acute HFpEF ( mild diastolic heart failure present ) 2. Essential hypertension 3. Chronic renal disease unspecified 4. Hypothyroidism 5. Morbid obesity. Plan. Patient is stable. Patient elevated serum troponin levels on admission was likely secondary to acute renal insufficiency present on admission. Salt restriction with treatment for Hypertension and to include regular diuresis. Recommend outpatient evaluation with a brake lining curer. Continue present medication Subjective Date of service: 12/14/21 Interval history: Patient is stable denies any shortness of breath. Objective Vital Signs Temp Pulse Pulse Pulse Resp Resp BP 12/14/21 09:58 108 H 12/14/21 08:49 101 H 22 12/14/21 07:24 97.5 F L 101 H 18 150/64 12/14/21 07:00 94 H 12/14/21 06:05 102 H 18 140/52 12/14/21 01:07 98.3 F 100 H 18 152/64 12/13/21 22:00 99 H 18 12/13/21 20:28 93 H 18 12/13/21 19:30 98.1 F 99 H 16 129/71 12/13/21 15:14 98.0 F 93 H 18 149/70 Pulse Ox 12/14/21 09:58 12/14/21 08:49 96 12/14/21 07:24 98 12/14/21 07:00 12/14/21 06:05 97 12/14/21 01:07 96 12/13/21 22:00 96 12/13/21 20:28 12/13/21 19:30 95 12/13/21 15:14 93 - Physical Examination General: Other (obese) HEENT: Positive: PERRL, Normocephaly, Mucus Membranes Moist Neck: Positive: neck supple, trachea midline, JVD/HJR Cardiac: Positive: Regular Rate, S1/S2, S4, PMI, Laterally Displaced Lungs: Positive: clear to auscultation, No Wheeze, Rales, Rhonchi Neuro: Positive: Grossly Intact Abdomen: Positive: Unremarkable, Soft, Active Bowel Sounds Extremities: Present: Other (R.FOOT - CYST -PLANTAR SURFACE,,,GREAT TOE PAIN). Absent: edema - Labs and Meds CBC 12/13/21 Range/Units 10:34 WBC 13.8 H (4.5-11.0) K/mm3 RBC 4.30 (3.65-5.03) M/mm3 Hgb 11.4 (10.1-14.3) gm/dl Hct 34.0 (30.3-42.9) % Plt Count 348 (140-440) K/mm3 Comprehensive Metabolic Panel 12/13/21 12/14/21 Range/Units 10:34 04:31 Sodium 140 142 (137-145) mmol/L Potassium 2.9 L* 3.8 D (3.6-5.0) mmol/L Chloride 96.4 L 97.3 L (98-107) mmol/L Carbon Dioxide 32 H D 31 H (22-30) mmol/L BUN 28 H 23 H (7-17) mg/dL Creatinine 0.7 0.8 (0.6-1.2) mg/dL Glucose 111 H 101 H (65-100) mg/dL Calcium 9.4 9.4 (8.4-10.2) mg/dL
--- NOTE | 2021-12-14 12:35 | Progress Note ---
Assessment and Plan Assessment and plan: --Hypokalemia, likely due to diuresis Continue to replete potassium as needed and monitor BMP --Acute versus acute on chronic diastolic congestive heart failure: patient has elevated proBNP findings of congestive heart failure on chest x-ray s/p IV diuretics now changed to p.o. Continue beta-blockers input output monitoring Daily weights low-sodium diet and fluid restriction 2D echo showed preserved EF with diastolic dysfunction --Acute on chronic hypoxic respiratory failure Likely due to underlying obesity hypoventilation syndrome, chronic CHF Patient on 2 L nasal cannula O2 at home Wean off O2 as tolerated, nebs as needed --Elevated troponin/non-ST elevation [place] probably type II Closely monitor cardiac enzymes, serial EKGs, follow echocardiogram Continue aspirin beta-blockers JOSÉ ANTONIO inhibitors nitrates and statins Cardiology consulted, s/p stress test showed no reversible ischemia --Acute kidney injury; vasomotor nephropathy Monitor renal function, avoid nephrotoxin, consult nephrology if no improvement Normal findings on renal ultrasound --Elevated LFTs/probably secondary to liver congestion Patient does not have any history of alcohol use Closely monitor --Dyslipidemia : Low-cholesterol diet Patient's LFTs are high unable to give statin Closely monitor --History of hypothyroidism ; Resume home Synthroid Closely monitor check thyroid functions --morbid obesity; BMI 67.0; Patient may need dietary modification, exercise as tolerated and weight reduction when he is medically stable His weight partly secondary to fluid overload and congestive heart failure Treat the underlying cause. --Oral thrush, placed on nystatin swish and swallow --Full CODE STATUS; --DVT prophylaxis; Subcu Lovenox renal dose --Advance care plan: Patient is in severe distress, patient's diagnosis discussed with the patient follow BMP. Cont Lasix to p.o. Patient clinically stable for discharge, discharge pending on SNF placement Continue to provide supportive care Subjective Date of service: 12/14/21 Interval history: Patient seen and examined. Medical records and medication list reviewed. No acute event overnight noted by the RN. Patient doing better. Patient is tolerating diet. Discussed plan of care at bedside with patient. Objective - Exam Narrative Exam: General appearance: Present: no acute distress, well-nourished, obese - EENT Eyes: Present: PERRL, EOM intact - Neck Neck: Present: supple, normal ROM - Respiratory Respiratory effort: normal Respiratory: bilateral: CTA, diminished - Cardiovascular Rhythm: regular Heart Sounds: Present: S1 & S2 - Extremities Extremities: no ischemia, pulses intact, pulses symmetrical - Abdominal General gastrointestinal: soft, non-tender, non-distended, normal bowel sounds - Integumentary Integumentary: Present: clear, warm - Psychiatric Psychiatric: appropriate mood/affect, cooperative - Neurologic Neurologic: CNII-XII intact, moves all extremities - Constitutional Vitals: Vital Signs - 12hr 12/14/21 12/14/21 12/14/21 01:07 06:05 07:00 Temperature 98.3 F Pulse Rate 100 H 102 H 94 H Pulse Rate [ From Monitor] Respiratory 18 18 Rate Blood Pressure 152/64 140/52 O2 Sat by Pulse 96 97 Oximetry 12/14/21 12/14/21 12/14/21 07:24 08:49 09:58 Temperature 97.5 F L Pulse Rate 101 H 108 H Pulse Rate [ 101 H From Monitor] Respiratory 18 22 Rate Blood Pressure 150/64 O2 Sat by Pulse 98 96 Oximetry - Labs CBC & Chem 7: 12/13/21 10:34 12/14/21 04:31 Labs: Abnormal lab results 12/14/21 Range/Units 04:31 Chloride 97.3 L (98-107) mmol/L Carbon Dioxide 31 H (22-30) mmol/L BUN 23 H (7-17) mg/dL Glucose 101 H (65-100) mg/dL HEART Score - HEART Score Troponin: Troponin T 0.047 ng/mL (0.00-0.029) H D 12/08/21 09:41
[2021-12-14] MEDS: ACETAMINOPHEN 325 MG TAB PO PRN (15:30)
[2021-12-15] MEDS: IPRATROPIUM/ALBUTEROL SULFATE 3 ML AMPUL.NEB IH SCH ×4 (02:26→20:14)
[2021-12-15] MEDS: LEVOTHYROXINE 100 MCG TAB PO SCH (05:27)
[2021-12-15] MEDS: BUDESONIDE 0.5 MG/2 ML NEBU IH SCH ×2 (08:58→20:14)
[2021-12-15] MEDS: ARFORMOTEROL 15 MCG/2 ML NEBU IH SCH ×2 (08:58→20:13)
--- NOTE | 2021-12-15 09:01 | Progress Note ---
Assessment and Plan Assessment and plan: --Hypokalemia, likely due to diuresis Continue to replete potassium as needed and monitor BMP --Acute versus acute on chronic diastolic congestive heart failure: patient has elevated proBNP findings of congestive heart failure on chest x-ray s/p IV diuretics now changed to p.o. Continue beta-blockers input output monitoring Daily weights low-sodium diet and fluid restriction 2D echo showed preserved EF with diastolic dysfunction --Acute on chronic hypoxic respiratory failure Likely due to underlying obesity hypoventilation syndrome, chronic CHF Patient on 2 L nasal cannula O2 at home Wean off O2 as tolerated, nebs as needed --Elevated troponin/non-ST elevation AK probably type II Closely monitor cardiac enzymes, serial EKGs, follow echocardiogram Continue aspirin beta-blockers JOSÉ ANTONIO inhibitors nitrates and statins Cardiology consulted, s/p stress test showed no reversible ischemia --Acute kidney injury; vasomotor nephropathy Monitor renal function, avoid nephrotoxin, consult nephrology if no improvement Normal findings on renal ultrasound --Elevated LFTs/probably secondary to liver congestion Patient does not have any history of alcohol use Closely monitor --Dyslipidemia : Low-cholesterol diet Patient's LFTs are high unable to give statin Closely monitor --History of hypothyroidism ; Resume home Synthroid Closely monitor check thyroid functions --morbid obesity; BMI 67.0; Patient may need dietary modification, exercise as tolerated and weight reduction when he is medically stable His weight partly secondary to fluid overload and congestive heart failure Treat the underlying cause. --Oral thrush, placed on nystatin swish and swallow --Full CODE STATUS; --DVT prophylaxis; Subcu Lovenox renal dose --Advance care plan: Patient is in severe distress, patient's diagnosis discussed with the patient follow BMP. Cont Lasix to p.o. Patient clinically stable for discharge, discharge pending on SNF placement Continue to provide supportive care Disposition; patient is clinically stable for discharge, pending SNF placement History Interval history: I have seen and examined the patient at the bedside this afternoon Patient's chart and medications reviewed Patient is awaiting SNF placement CM assisting with discharge planning Patient feels better no new complaints Vital signs noted card cardiology recommended Cardiology evaluated the patient outpatient follow-up Hospitalist Physical - Constitutional Vitals: Temp Pulse Resp BP Pulse Ox 98.3 F 92 H 19 115/49 97 12/15/21 07:53 12/15/21 07:53 12/15/21 03:39 12/15/21 07:53 12/15/21 07:53 General appearance: Present: no acute distress, well-nourished, obese (Morbidly obese) - EENT Eyes: Present: PERRL, EOM intact - Neck Neck: Present: supple, normal ROM - Respiratory Respiratory effort: normal Respiratory: bilateral: diminished, negative: rales, rhonchi, wheezing - Cardiovascular Rhythm: regular Heart Sounds: Present: S1 & S2 - Extremities Extremities: no ischemia, No edema - Abdominal General gastrointestinal: soft, non-tender, non-distended, normal bowel sounds - Integumentary Integumentary: Present: clear, warm - Psychiatric Psychiatric: appropriate mood/affect, cooperative - Neurologic Neurologic: moves all extremities HEART Score - HEART Score Troponin: Troponin T 0.047 ng/mL (0.00-0.029) H D 12/08/21 09:41 Results - Labs CBC & Chem 7: 12/13/21 10:34 12/14/21 04:31 Labs: Laboratory Last Values WBC 13.8 K/mm3 (4.5-11.0) H 12/13/21 10:34 RBC 4.30 M/mm3 (3.65-5.03) 12/13/21 10:34 Hgb 11.4 gm/dl (10.1-14.3) 12/13/21 10:34 Hct 34.0 % (30.3-42.9) 12/13/21 10:34 MCV 79 fl (79-97) 12/13/21 10:34 MCH 26 pg (28-32) L 12/13/21 10:34 MCHC 33 % (30-34) 12/13/21 10:34 RDW 14.9 % (13.2-15.2) 12/13/21 10:34 Plt Count 348 K/mm3 (140-440) 12/13/21 10:34 Add Manual Diff Complete 12/09/21 05:45 Total Counted 100 12/09/21 05:45 Seg Neuts % (Manual) 87.0 % (40.0-70.0) H 12/09/21 05:45 Band Neutrophils % 1.0 % 12/09/21 05:45 Lymphocytes % (Manual) 11.0 % (13.4-35.0) L 12/09/21 05:45 Reactive Lymphs % (Man) 0 % 12/09/21 05:45 Monocytes % (Manual) 1.0 % (0.0-7.3) 12/09/21 05:45 Eosinophils % (Manual) 0 % (0.0-4.3) 12/09/21 05:45 Basophils % (Manual) 0 % (0.0-1.8) 12/09/21 05:45 Metamyelocytes % 0 % 12/09/21 05:45 Myelocytes % 0 % 12/09/21 05:45 Promyelocytes % 0 % 12/09/21 05:45 Blast Cells % 0 % 12/09/21 05:45 Nucleated RBC % 3.0 % (0.0-0.9) H 12/09/21 05:45 Seg Neutrophils # Man 17.1 K/mm3 (1.8-7.7) H 12/09/21 05:45 Band Neutrophils # 0.2 K/mm3 12/09/21 05:45 Lymphocytes # (Manual) 2.2 K/mm3 (1.2-5.4) 12/09/21 05:45 Abs React Lymphs (Man) 0.0 K/mm3 12/09/21 05:45 Monocytes # (Manual) 0.2 K/mm3 (0.0-0.8) 12/09/21 05:45 Eosinophils # (Manual) 0.0 K/mm3 (0.0-0.4) 12/09/21 05:45 Basophils # (Manual) 0.0 K/mm3 (0.0-0.1) 12/09/21 05:45 Metamyelocytes # 0.0 K/mm3 12/09/21 05:45 Myelocytes # 0.0 K/mm3 12/09/21 05:45 Promyelocytes # 0.0 K/mm3 12/09/21 05:45 Blast Cells # 0.0 K/mm3 12/09/21 05:45 WBC Morphology Not Reportable 12/09/21 05:45 Hypersegmented Neuts Not Reportable 12/09/21 05:45 Hyposegmented Neuts Not Reportable 12/09/21 05:45 Hypogranular Neuts Not Reportable 12/09/21 05:45 Smudge Cells Not Reportable 12/09/21 05:45 Toxic Granulation Not Reportable 12/09/21 05:45 Toxic Vacuolation Not Reportable 12/09/21 05:45 Dohle Bodies Not Reportable 12/09/21 05:45 Pelger-Huet Anomaly Not Reportable 12/09/21 05:45 Fernanda Rods Not Reportable 12/09/21 05:45 Platelet Estimate Consistent w auto 12/09/21 05:45 Clumped Platelets Not Reportable 12/09/21 05:45 Plt Clumps, EDTA Not Reportable 12/09/21 05:45 Large Platelets Not Reportable 12/09/21 05:45 Giant Platelets Not Reportable 12/09/21 05:45 Platelet Satelliting Not Reportable 12/09/21 05:45 Plt Morphology Comment Not Reportable 12/09/21 05:45 RBC Morphology Not Reportable 12/09/21 05:45 Dimorphic RBCs Not Reportable 12/09/21 05:45 Polychromasia Not Reportable 12/09/21 05:45 Hypochromasia 1+ 12/09/21 05:45 Poikilocytosis Not Reportable 12/09/21 05:45 Anisocytosis 1+ 12/09/21 05:45 Microcytosis Not Reportable 12/09/21 05:45 Macrocytosis Not Reportable 12/09/21 05:45 Spherocytes Not Reportable 12/09/21 05:45 Pappenheimer Bodies Not Reportable 12/09/21 05:45 Sickle Cells Not Reportable 12/09/21 05:45 Target Cells Not Reportable 12/09/21 05:45 Tear Drop Cells Not Reportable 12/09/21 05:45 Ovalocytes Not Reportable 12/09/21 05:45 Helmet Cells Not Reportable 12/09/21 05:45 [place] Bodies Not Reportable 12/09/21 05:45 [place] Rings Not Reportable 12/09/21 05:45 Ronni Cells Not Reportable 12/09/21 05:45 Bite Cells Not Reportable 12/09/21 05:45 Crenated Cell Not Reportable 12/09/21 05:45 Elliptocytes Not Reportable 12/09/21 05:45 Acanthocytes (Spur) Not Reportable 12/09/21 05:45 Rouleaux Not Reportable 12/09/21 05:45 Hemoglobin C Crystals Not Reportable 12/09/21 05:45 Schistocytes Not Reportable 12/09/21 05:45 Malaria parasites Not Reportable 12/09/21 05:45 Aftab Bodies Not Reportable 12/09/21 05:45 Hem Pathologist Commnt No 12/09/21 05:45 D-Dimer > 2000 ng/mlDDU (0-234) H 12/08/21 20:37 Sodium 142 mmol/L (137-145) 12/14/21 04:31 Potassium 3.8 mmol/L (3.6-5.0) D 12/14/21 04:31 Chloride 97.3 mmol/L (98-107) L 12/14/21 04:31 Carbon Dioxide 31 mmol/L (22-30) H 12/14/21 04:31 Anion Gap 18 mmol/L 12/14/21 04:31 BUN 23 mg/dL (7-17) H 12/14/21 04:31 Creatinine 0.8 mg/dL (0.6-1.2) 12/14/21 04:31 Estimated GFR > 60 ml/min 12/14/21 04:31 BUN/Creatinine Ratio 29 % 12/14/21 04:31 Glucose 101 mg/dL (65-100) H 12/14/21 04:31 Uric Acid 15.4 mg/dL (3.5-7.6) H 12/12/21 11:20 Calcium 9.4 mg/dL (8.4-10.2) 12/14/21 04:31 Ferritin 1347.0 ng/mL (10.0-200.0) H 12/08/21 20:37 Total Bilirubin 1.00 mg/dL (0.1-1.2) 12/08/21 09:41 Direct Bilirubin Cancelled 12/08/21 09:41 AST 99 units/L (5-40) H 12/08/21 09:41 ALT 49 units/L (7-56) 12/08/21 09:41 Alkaline Phosphatase 232 units/L (35-129) H 12/08/21 09:41 Lactate Dehydrogenase 344 units/L (91-180) H 12/08/21 20:37 Troponin T 0.047 ng/mL (0.00-0.029) H D 12/08/21 09:41 C-Reactive Protein 38.60 mg/dL (0.00-1.30) H 12/08/21 20:37 NT-Pro-B Natriuret Pep 4313 pg/mL (0-900) H 12/07/21 21:23 Total Protein 6.8 g/dL (6.3-8.2) 12/08/21 09:41 Albumin 3.4 g/dL (3.9-5) L 12/08/21 09:41 Albumin/Globulin Ratio 1.0 % 12/08/21 09:41 Triglycerides 310 mg/dL (2-149) H 12/08/21 09:41 Cholesterol 259 mg/dL (50-199) H 12/08/21 09:41 LDL Cholesterol Direct 133 mg/dL (50-130) H 12/08/21 09:41 HDL Cholesterol 25 mg/dL (40-59) L 12/08/21 09:41 Cholesterol/HDL Ratio 10.36 % 12/08/21 09:41 Urine Color Gita (Yellow) 12/08/21 Unknown Urine Turbidity Slightly-cloudy (Clear) 12/08/21 Unknown Urine pH 5.0 (5.0-7.0) 12/08/21 Unknown Ur Specific [place] 1.017 (1.003-1.030) 12/08/21 Unknown Urine Protein 30 mg/dl mg/dL (Negative) 12/08/21 Unknown Urine Glucose (UA) Neg mg/dL (Negative) 12/08/21 Unknown Urine Ketones Neg mg/dL (Negative) 12/08/21 Unknown Urine Blood Sm (Negative) 12/08/21 Unknown Urine Nitrite Neg (Negative) 12/08/21 Unknown Urine Bilirubin Neg (Negative) 12/08/21 Unknown Urine Urobilinogen 4.0 mg/dL (<2.0) 12/08/21 Unknown Ur Leukocyte Esterase Neg (Negative) 12/08/21 Unknown Urine WBC (Auto) 7.0 /HPF (0.0-6.0) H 12/08/21 Unknown Urine RBC (Auto) 11.0 /HPF (0.0-6.0) 12/08/21 Unknown U Epithel Cells (Auto) 14.0 /HPF (0-13.0) H 12/08/21 Unknown Urine Bacteria (Auto) 1+ /HPF (Negative) 12/08/21 Unknown Urine Mucus Few /HPF 12/08/21 Unknown Urine Yeast (Budding) Few /HPF 12/08/21 Unknown Coronavirus (PCR) Negative (Negative) 12/09/21 09:40 Verma/IV: Voiding Method External Female Catheter Active Medications - Current Medications Current Medications: Generic Name Dose Route Start Last Admin Trade Name Freq PRN Reason Stop Dose Admin Acetaminophen 650 mg 12/08/21 05:19 12/14/21 15:30 Acetaminophen 325 Mg Tab PO 650 mg Q4H PRN Administration Pain MILD(1-3)/Fever >100.5/HENDRIX Albuterol 2.5 mg 12/08/21 17:56 Albuterol 2.5 Mg/3 Ml Nebu IH Q4HRT PRN Shortness Of Breath Albuterol/Ipratropium 1 ampul 12/08/21 20:00 12/15/21 08:58 Ipratropium/Albuterol Sulfate 3 Ml Ampul.Neb IH 1 ampul Q6HRT SHANELL Administration Allopurinol 100 mg 12/15/21 10:00 Allopurinol 100 Mg Tab PO QDAY SHANELL Arformoterol Tartrate 15 mcg 12/08/21 20:00 12/15/21 08:58 Arformoterol 15 Mcg/2 Ml Nebu IH 15 mcg Q12HRT SHANELL Administration Aspirin 325 mg 12/09/21 10:00 12/14/21 09:23 Aspirin Ec 325 Mg Tab PO 325 mg QDAY SHANELL Administration Atorvastatin Calcium 40 mg 12/10/21 22:00 12/14/21 21:58 Atorvastatin 40 Mg Tab PO 40 mg QHS SHANELL Administration Budesonide 0.5 mg 12/08/21 20:00 12/15/21 08:58 Budesonide 0.5 Mg/2 Ml Nebu IH 0.5 mg Q12HRT SHANELL Administration Carvedilol 3.125 mg 12/14/21 10:00 12/14/21 21:58 Carvedilol 3.125 Mg Tab PO 3.125 mg BID SHANELL Administration Enoxaparin Sodium 40 mg 12/15/21 22:00 Enoxaparin 40 Mg/0.4 Ml Inj SUB-Q QDAY@2200 [facility] Protocol Furosemide 40 mg 12/14/21 10:00 12/14/21 09:23 Furosemide 40 Mg Tab PO 40 mg QDAY SHANELL Administration Levothyroxine Sodium 100 mcg 12/09/21 06:00 12/15/21 05:27 Levothyroxine 100 Mcg Tab PO 100 mcg DAILY@0600 SHANELL Administration Magnesium Hydroxide 30 ml 12/08/21 05:19 Magnesium Hydroxide (Mom) Oral Liqd Udc PO Q4H PRN Constipation Morphine Sulfate 2 mg 12/08/21 05:19 Morphine 2 Mg/1 Ml Inj IV Q4H PRN Pain, Moderate (4-6) Morphine Sulfate 4 mg 12/08/21 05:19 Morphine 4 Mg/1 Ml Inj IV Q4H PRN Pain , Severe (7-10) Morphine Sulfate 2 mg 12/08/21 05:19 Morphine 2 Mg/1 Ml Inj IV Q5MIN PRN Chest Pain unrelieved by NTG Naproxen 375 mg 12/11/21 16:37 12/12/21 05:53 Naproxen 375 Mg Tab PO 375 mg Q12H PRN Administration Pain, Mild (1-3) Nystatin 500,000 unit 12/09/21 20:00 12/14/21 21:58 Nystatin 500,000 Unit/5 Ml Oral Liqd PO 500,000 unit TID SHANELL Administration Ondansetron HCl 4 mg 12/08/21 05:19 Ondansetron 4 Mg/2 Ml Inj IV Q8H PRN Nausea And Vomiting Potassium Chloride 20 meq 12/13/21 13:00 12/14/21 09:24 Potassium Chloride Er 20 Meq Tab PO 20 meq QDAY SHANELL Administration Sodium Chloride 10 ml 12/08/21 10:00 12/14/21 21:59 Sodium Chloride 0.9% 10 Ml Flush Syringe IV 10 ml BID SHANELL Administration Sodium Chloride 10 ml 12/08/21 05:19 Sodium Chloride 0.9% 10 Ml Flush Syringe IV PRN PRN LINE FLUSH Nutrition/Malnutrition Assess - Dietary Evaluation Nutrition/Malnutrition Findings: Nutrition Notes Start: 12/08/21 18:44 Freq: Status: Active Protocol: Document 12/08/21 18:44 DELANO (Rec: 12/08/21 18:59 DELANO [id number]) Nutrition Notes Need for 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 Current Diet Cardiac Diet (since B 12/08). Labs/Tests 05/24: BUN 56, Crea 1.4, Glu 171. Pertinent Medications 12/08: Nutritionally unremarkable. 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 Weight Status Morbidly Obese Subjective/Other Information RD consult for skin risk assessment. No reports available on Pt's PO intake of meals at the time , will assess at F/U. Pt is on Non-Rebreather+, O2 saturation is @ 96%, according to Physical Assessment History notes. Pt has missing teeth, according to Physical Assessment History notes. Pt shows no signs of concern for skin risk at the time, according to Physical Assessment History notes. Percent of energy/protein needs met: Prescribed Cardiac Diet provides for energy/protein needs (2,230 Kcal/85 g) during LOS. Burn Absent Trauma Absent GI Symptoms None Food Allergy No Skin Integrity/Comment Assessment WNL. Minimum of two criteria No #1 Nutrition Diagnosis No nutrition diagnosis at this time Comments: Will assess Pt's PO intake of meals at F/U. Is patient on ventilator? No Is Patient Ambulatory and/or Out of Bed No REE-([facility]-confined to bed) 2753.508 Kcal/Kg value to use for calculation 8 Approximate Energy Requirements Using 1417 kcal/Kg Calculation Used for Recommendations Kcal/kg Additional Notes Protein: 0.8-1.2 g/Kg AdjBW; 85-127 g/day. Fluids: 1 ml/Kcal, or as per MD. Nutrition Intervention Change Diet Order: Continue Cardiac Diet. Follow-Up By: 12/15/21 Additional Comments Continue monitoring food tolerance, %PO intake of meals , and BM.
--- NOTE | 2021-12-15 09:35 | Progress Note ---
Assessment and Plan 1. Acute HFpEF ( mild diastolic heart failure present ) 2. Mild hypertrophic cardiomyopathy with grade 1 diastolic dysfunction 3. Essential hypertension 4. Chronic renal disease unspecified 5. Hypothyroidism 6. Morbid obesity. 7. Nonspecific abnormal resting EKG with no evolutionary changes Plan. Patient is stable. Patient elevated serum troponin levels on admission was likely secondary to acute renal insufficiency present on admission. Salt restriction with treatment for Hypertension and to include regular diuresis. Recommend outpatient evaluation with a financial sales professional. Continue present medication follow up as an outpatient Subjective Date of service: 12/15/21 Interval history: Patient is stable denies any shortness of breath. Patient on aerosol therapy now Objective Vital Signs Temp Pulse Pulse Pulse Resp Resp BP 12/15/21 07:53 98.3 F 92 H 115/49 12/15/21 03:39 98.8 F 96 H 19 149/69 12/15/21 01:00 101 H 12/14/21 23:50 98.7 F 94 H 20 122/63 12/14/21 22:00 99 H 18 12/14/21 21:58 92 H 144/64 12/14/21 20:42 12/14/21 20:40 97.4 F L 92 H 20 144/64 12/14/21 20:37 97 H 16 12/14/21 17:22 99 H 12/14/21 16:39 99.0 F 94 H 18 135/69 12/14/21 14:00 98 H 20 12/14/21 12:22 97.8 F 91 H 18 141/56 12/14/21 09:58 108 H Pulse Ox 12/15/21 07:53 97 12/15/21 03:39 96 12/15/21 01:00 12/14/21 23:50 99 12/14/21 22:00 96 12/14/21 21:58 12/14/21 20:42 99 12/14/21 20:40 99 12/14/21 20:37 12/14/21 17:22 12/14/21 16:39 98 12/14/21 14:00 12/14/21 12:22 97 12/14/21 09:58 - Physical Examination General: Other (obese) HEENT: Positive: PERRL, Normocephaly, Mucus Membranes Moist Neck: Positive: neck supple, trachea midline, JVD/HJR Cardiac: Positive: Regular Rate, S1/S2, S4, PMI, Laterally Displaced. Negative: S3 Lungs: Positive: clear to auscultation, No Wheeze, Rales, Rhonchi Neuro: Positive: Grossly Intact Abdomen: Positive: Unremarkable, Soft, Active Bowel Sounds Extremities: Present: Other (R.FOOT - CYST -PLANTAR SURFACE,,,GREAT TOE PAIN). Absent: edema
[2021-12-15] MEDS: allopurinoL 100 MG TAB PO SCH (09:56)
[2021-12-15] MEDS: FUROSEMIDE 40 MG TAB PO SCH (09:56)
[2021-12-15] MEDS: NYSTATIN 500,000 UNIT/5 ML ORAL LIQD PO SCH ×3 (09:56→22:06)
[2021-12-15] MEDS: POTASSIUM CHLORIDE ER 20 MEQ TAB PO SCH (09:56)
[2021-12-15] MEDS: ASPIRIN EC 325 MG TAB PO SCH (09:56)
[2021-12-15] MEDS: carvediloL 3.125 MG TAB PO SCH ×2 (09:57→22:06)
[2021-12-15] MEDS ORDERED: ALBUTEROL 2.5 MG/3 ML NEBU IH PRN (14:00)
[2021-12-15] MEDS: ENOXAPARIN 40 MG/0.4 ML INJ SUB-Q SCH (22:06)
[2021-12-16 04:46] LABS: Hematocrit 31.9 % (30.3-42.9); Hemoglobin 10.3 gm/dl (10.1-14.3); Mean Corpuscular HGB Conc 32 % (30-34); Mean Corpuscular Volume 80 fl (79-97); Platelet Count 391 K/mm3 (140-440); Red Cell Distribution Width 14.6 % (13.2-15.2)
[2021-12-16 05:02] LABS: Blood Urea Nitrogen 13 mg/dL (7-17); Calcium 9.7 mg/dL (8.4-10.2); Hemolysis Index 1
[2021-12-16 05:04] LABS: BUN/Creatinine Ratio 22
[2021-12-16 06:13] LABS: Band Neutrophils # (Manual) 0.2 K/mm3; Hypochromasia 1+; Large Platelets Rare; Platelet Estimate Consistent w Auto; Smudge Cells Few; Total Cells Counted 100
[2021-12-16] MEDS: LEVOTHYROXINE 100 MCG TAB PO SCH (06:17)
[2021-12-16] MEDS ORDERED: POTASSIUM CHLORIDE ER 20 MEQ TAB PO NR (09:45)
[2021-12-16] MEDS: BUDESONIDE 0.5 MG/2 ML NEBU IH SCH ×2 (09:50→20:30)
[2021-12-16] MEDS: ARFORMOTEROL 15 MCG/2 ML NEBU IH SCH ×2 (09:50→20:30)
[2021-12-16] MEDS: IPRATROPIUM/ALBUTEROL SULFATE 3 ML AMPUL.NEB IH SCH ×3 (09:50→20:30)
[2021-12-16] MEDS: allopurinoL 100 MG TAB PO SCH (10:29)
[2021-12-16] MEDS: FUROSEMIDE 40 MG TAB PO SCH (10:29)
[2021-12-16] MEDS: ASPIRIN EC 325 MG TAB PO SCH (10:29)
[2021-12-16] MEDS: carvediloL 3.125 MG TAB PO SCH ×2 (10:30→21:02)
[2021-12-16] MEDS: NYSTATIN 500,000 UNIT/5 ML ORAL LIQD PO SCH ×2 (10:31→14:00)
--- NOTE | 2021-12-16 10:32 | Progress Note ---
Assessment and Plan 1. Acute HFpEF ( mild diastolic heart failure present ) 2. Mild hypertrophic cardiomyopathy with grade 1 diastolic dysfunction 3. Essential hypertension 4. Chronic renal disease unspecified 5. Hypothyroidism 6. Morbid obesity. 7. Nonspecific abnormal resting EKG with no evolutionary changes Plan. Patient is stable. Patient elevated serum troponin levels on admission was likely secondary to acute renal insufficiency present on admission. Salt restriction with treatment for Hypertension and to include regular diuresis. Recommend outpatient evaluation with a acting section chief. Continue present medication follow up as an outpatient Subjective Date of service: 12/16/21 Interval history: Patient is stable denies any shortness of breath. Objective Vital Signs Temp Pulse Pulse Resp Resp BP BP 12/16/21 07:50 12/16/21 07:11 98.6 F 94 H 18 142/67 12/16/21 05:35 98.7 F 90 18 130/62 12/15/21 22:06 93 H 12/15/21 22:00 12/15/21 20:53 93 H 18 139/65 12/15/21 20:20 90 20 12/15/21 17:03 98.3 F 95 H 105/52 12/15/21 13:46 12/15/21 13:40 89 20 12/15/21 11:49 12/15/21 11:26 98.3 F 97 H 136/67 Pulse Ox 12/16/21 07:50 95 12/16/21 07:11 95 12/16/21 05:35 97 12/15/21 22:06 12/15/21 22:00 96 12/15/21 20:53 94 12/15/21 20:20 12/15/21 17:03 97 12/15/21 13:46 98 12/15/21 13:40 12/15/21 11:49 96 12/15/21 11:26 96 - Physical Examination General: Other (obese) HEENT: Positive: PERRL, Normocephaly, Mucus Membranes Moist Neck: Positive: neck supple, trachea midline, JVD/HJR Cardiac: Positive: Regular Rate, S1/S2, PMI, Laterally Displaced. Negative: S3 Lungs: Positive: clear to auscultation, No Wheeze, Rales, Rhonchi Neuro: Positive: Grossly Intact Abdomen: Positive: Unremarkable, Soft, Active Bowel Sounds Extremities: Present: Other (R.FOOT - CYST -PLANTAR SURFACE,,,GREAT TOE PAIN). Absent: edema - Labs and Meds CBC 12/16/21 Range/Units 04:03 WBC 9.8 (4.5-11.0) K/mm3 RBC 4.00 (3.65-5.03) M/mm3 Hgb 10.3 (10.1-14.3) gm/dl Hct 31.9 (30.3-42.9) % Plt Count 391 (140-440) K/mm3 Comprehensive Metabolic Panel 12/16/21 Range/Units 04:03 Sodium 139 (137-145) mmol/L Potassium 3.3 L (3.6-5.0) mmol/L Chloride 97.6 L (98-107) mmol/L Carbon Dioxide 30 (22-30) mmol/L BUN 13 (7-17) mg/dL Creatinine 0.6 (0.6-1.2) mg/dL Glucose 98 (65-100) mg/dL Calcium 9.7 (8.4-10.2) mg/dL
--- NOTE | 2021-12-16 19:10 | Progress Note ---
Assessment and Plan Assessment and plan: --Hypokalemia, likely due to diuresis Continue to replete potassium as needed and monitor BMP --Acute versus acute on chronic diastolic congestive heart failure: patient has elevated proBNP findings of congestive heart failure on chest x-ray s/p IV diuretics now changed to p.o. Continue beta-blockers input output monitoring Daily weights low-sodium diet and fluid restriction 2D echo showed preserved EF with diastolic dysfunction --Acute on chronic hypoxic respiratory failure Likely due to underlying obesity hypoventilation syndrome, chronic CHF Patient on 2 L nasal cannula O2 at home Wean off O2 as tolerated, nebs as needed --Elevated troponin/non-ST elevation IL probably type II Closely monitor cardiac enzymes, serial EKGs, follow echocardiogram Continue aspirin beta-blockers JOSÉ ANTONIO inhibitors nitrates and statins Cardiology consulted, s/p stress test showed no reversible ischemia --Acute kidney injury; vasomotor nephropathy Monitor renal function, avoid nephrotoxin, consult nephrology if no improvement Normal findings on renal ultrasound --Elevated LFTs/probably secondary to liver congestion Patient does not have any history of alcohol use Closely monitor --Dyslipidemia : Low-cholesterol diet Patient's LFTs are high unable to give statin Closely monitor --History of hypothyroidism ; Resume home Synthroid Closely monitor check thyroid functions --morbid obesity; BMI 67.0; Patient may need dietary modification, exercise as tolerated and weight reduction when he is medically stable His weight partly secondary to fluid overload and congestive heart failure Treat the underlying cause. --Oral thrush, placed on nystatin swish and swallow --Full CODE STATUS; --DVT prophylaxis; Subcu Lovenox renal dose --Advance care plan: Patient is in severe distress, patient's diagnosis discussed with the patient follow BMP. Cont Lasix to p.o. Patient clinically stable for discharge, discharge pending on SNF placement Continue to provide supportive care Disposition; patient is clinically stable for discharge, pending SNF placement History Interval history: I have seen and examined the patient at the bedside Patient's chart and medications reviewed Patient has no new complaints Awaiting SNF placement Vital signs noted Hospitalist Physical - Constitutional Vitals: Temp Pulse Resp BP Pulse Ox 98.6 F 90 18 152/72 96 12/16/21 16:40 12/16/21 16:40 12/16/21 16:40 12/16/21 16:40 12/16/21 16:40 General appearance: Present: no acute distress, well-nourished, obese (Morbidly obese) - EENT Eyes: Present: PERRL, EOM intact - Neck Neck: Present: supple, normal ROM - Respiratory Respiratory effort: normal Respiratory: bilateral: diminished, negative: rales, rhonchi, wheezing - Cardiovascular Rhythm: regular Heart Sounds: Present: S1 & S2 - Extremities Extremities: no ischemia, No edema - Abdominal General gastrointestinal: soft, non-tender, non-distended, normal bowel sounds - Integumentary Integumentary: Present: clear, warm - Psychiatric Psychiatric: appropriate mood/affect, cooperative - Neurologic Neurologic: moves all extremities HEART Score - HEART Score Troponin: Troponin T 0.047 ng/mL (0.00-0.029) H D 12/08/21 09:41 Results - Labs CBC & Chem 7: 12/16/21 04:03 12/16/21 04:03 Labs: Laboratory Last Values WBC 9.8 K/mm3 (4.5-11.0) 12/16/21 04:03 RBC 4.00 M/mm3 (3.65-5.03) 12/16/21 04:03 Hgb 10.3 gm/dl (10.1-14.3) 12/16/21 04:03 Hct 31.9 % (30.3-42.9) 12/16/21 04:03 MCV 80 fl (79-97) 12/16/21 04:03 MCH 26 pg (28-32) L 12/16/21 04:03 MCHC 32 % (30-34) 12/16/21 04:03 RDW 14.6 % (13.2-15.2) 12/16/21 04:03 Plt Count 391 K/mm3 (140-440) 12/16/21 04:03 Add Manual Diff Complete 12/16/21 04:03 Total Counted 100 12/16/21 04:03 Seg Neuts % (Manual) 80.0 % (40.0-70.0) H 12/16/21 04:03 Band Neutrophils % 2.0 % 12/16/21 04:03 Lymphocytes % (Manual) 10.0 % (13.4-35.0) L 12/16/21 04:03 Reactive Lymphs % (Man) 0 % 12/16/21 04:03 Monocytes % (Manual) 6.0 % (0.0-7.3) 12/16/21 04:03 Eosinophils % (Manual) 1.0 % (0.0-4.3) 12/16/21 04:03 Basophils % (Manual) 1.0 % (0.0-1.8) 12/16/21 04:03 Metamyelocytes % 0 % 12/16/21 04:03 Myelocytes % 0 % 12/16/21 04:03 Promyelocytes % 0 % 12/16/21 04:03 Blast Cells % 0 % 12/16/21 04:03 Nucleated RBC % Not Reportable 12/16/21 04:03 Seg Neutrophils # Man 7.8 K/mm3 (1.8-7.7) H 12/16/21 04:03 Band Neutrophils # 0.2 K/mm3 12/16/21 04:03 Lymphocytes # (Manual) 1.0 K/mm3 (1.2-5.4) L 12/16/21 04:03 Abs React Lymphs (Man) 0.0 K/mm3 12/16/21 04:03 Monocytes # (Manual) 0.6 K/mm3 (0.0-0.8) 12/16/21 04:03 Eosinophils # (Manual) 0.1 K/mm3 (0.0-0.4) 12/16/21 04:03 Basophils # (Manual) 0.1 K/mm3 (0.0-0.1) 12/16/21 04:03 Metamyelocytes # 0.0 K/mm3 12/16/21 04:03 Myelocytes # 0.0 K/mm3 12/16/21 04:03 Promyelocytes # 0.0 K/mm3 12/16/21 04:03 Blast Cells # 0.0 K/mm3 12/16/21 04:03 WBC Morphology Not Reportable 12/16/21 04:03 Hypersegmented Neuts Not Reportable 12/16/21 04:03 Hyposegmented Neuts Not Reportable 12/16/21 04:03 Hypogranular Neuts Not Reportable 12/16/21 04:03 Smudge Cells Few 12/16/21 04:03 Toxic Granulation Not Reportable 12/16/21 04:03 Toxic Vacuolation Not Reportable 12/16/21 04:03 Dohle Bodies Not Reportable 12/16/21 04:03 Pelger-Huet Anomaly Not Reportable 12/16/21 04:03 Fernanda Rods Not Reportable 12/16/21 04:03 Platelet Estimate Consistent w auto 12/16/21 04:03 Clumped Platelets Not Reportable 12/16/21 04:03 Plt Clumps, EDTA Not Reportable 12/16/21 04:03 Large Platelets Rare 12/16/21 04:03 Giant Platelets Not Reportable 12/16/21 04:03 Platelet Satelliting Not Reportable 12/16/21 04:03 Plt Morphology Comment Not Reportable 12/16/21 04:03 RBC Morphology Not Reportable 12/16/21 04:03 Dimorphic RBCs Not Reportable 12/16/21 04:03 Polychromasia Not Reportable 12/16/21 04:03 Hypochromasia 1+ 12/16/21 04:03 Poikilocytosis Not Reportable 12/16/21 04:03 Anisocytosis Not Reportable 12/16/21 04:03 Microcytosis Not Reportable 12/16/21 04:03 Macrocytosis Not Reportable 12/16/21 04:03 Spherocytes Not Reportable 12/16/21 04:03 Pappenheimer Bodies Not Reportable 12/16/21 04:03 Sickle Cells Not Reportable 12/16/21 04:03 Target Cells Not Reportable 12/16/21 04:03 Tear Drop Cells Not Reportable 12/16/21 04:03 Ovalocytes Not Reportable 12/16/21 04:03 Helmet Cells Not Reportable 12/16/21 04:03 Alonzo-Forsan Bodies Not Reportable 12/16/21 04:03 [place] Rings Not Reportable 12/16/21 04:03 Ronni Cells Not Reportable 12/16/21 04:03 Bite Cells Not Reportable 12/16/21 04:03 Crenated Cell Not Reportable 12/16/21 04:03 Elliptocytes Not Reportable 12/16/21 04:03 Acanthocytes (Spur) Not Reportable 12/16/21 04:03 Rouleaux Not Reportable 12/16/21 04:03 Hemoglobin C Crystals Not Reportable 12/16/21 04:03 Schistocytes Not Reportable 12/16/21 04:03 Malaria parasites Not Reportable 12/16/21 04:03 Aftab Bodies Not Reportable 12/16/21 04:03 Hem Pathologist Commnt No 12/16/21 04:03 D-Dimer > 2000 ng/mlDDU (0-234) H 12/08/21 20:37 Sodium 139 mmol/L (137-145) 12/16/21 04:03 Potassium 3.3 mmol/L (3.6-5.0) L 12/16/21 04:03 Chloride 97.6 mmol/L (98-107) L 12/16/21 04:03 Carbon Dioxide 30 mmol/L (22-30) 12/16/21 04:03 Anion Gap 15 mmol/L 12/16/21 04:03 BUN 13 mg/dL (7-17) 12/16/21 04:03 Creatinine 0.6 mg/dL (0.6-1.2) 12/16/21 04:03 Estimated GFR > 60 ml/min 12/16/21 04:03 BUN/Creatinine Ratio 22 % 12/16/21 04:03 Glucose 98 mg/dL (65-100) 12/16/21 04:03 Uric Acid 15.4 mg/dL (3.5-7.6) H 12/12/21 11:20 Calcium 9.7 mg/dL (8.4-10.2) 12/16/21 04:03 Ferritin 1347.0 ng/mL (10.0-200.0) H 12/08/21 20:37 Total Bilirubin 1.00 mg/dL (0.1-1.2) 12/08/21 09:41 Direct Bilirubin Cancelled 12/08/21 09:41 AST 99 units/L (5-40) H 12/08/21 09:41 ALT 49 units/L (7-56) 12/08/21 09:41 Alkaline Phosphatase 232 units/L (35-129) H 12/08/21 09:41 Lactate Dehydrogenase 344 units/L (91-180) H 12/08/21 20:37 Troponin T 0.047 ng/mL (0.00-0.029) H D 12/08/21 09:41 C-Reactive Protein 38.60 mg/dL (0.00-1.30) H 12/08/21 20:37 NT-Pro-B Natriuret Pep 4313 pg/mL (0-900) H 12/07/21 21:23 Total Protein 6.8 g/dL (6.3-8.2) 12/08/21 09:41 Albumin 3.4 g/dL (3.9-5) L 12/08/21 09:41 Albumin/Globulin Ratio 1.0 % 12/08/21 09:41 Triglycerides 310 mg/dL (2-149) H 12/08/21 09:41 Cholesterol 259 mg/dL (50-199) H 12/08/21 09:41 LDL Cholesterol Direct 133 mg/dL (50-130) H 12/08/21 09:41 HDL Cholesterol 25 mg/dL (40-59) L 12/08/21 09:41 Cholesterol/HDL Ratio 10.36 % 12/08/21 09:41 Urine Color Gita (Yellow) 12/08/21 Unknown Urine Turbidity Slightly-cloudy (Clear) 12/08/21 Unknown Urine pH 5.0 (5.0-7.0) 12/08/21 Unknown Ur Specific [place] 1.017 (1.003-1.030) 12/08/21 Unknown Urine Protein 30 mg/dl mg/dL (Negative) 12/08/21 Unknown Urine Glucose (UA) Neg mg/dL (Negative) 12/08/21 Unknown Urine Ketones Neg mg/dL (Negative) 12/08/21 Unknown Urine Blood Sm (Negative) 12/08/21 Unknown Urine Nitrite Neg (Negative) 12/08/21 Unknown Urine Bilirubin Neg (Negative) 12/08/21 Unknown Urine Urobilinogen 4.0 mg/dL (<2.0) 12/08/21 Unknown Ur Leukocyte Esterase Neg (Negative) 12/08/21 Unknown Urine WBC (Auto) 7.0 /HPF (0.0-6.0) H 12/08/21 Unknown Urine RBC (Auto) 11.0 /HPF (0.0-6.0) 12/08/21 Unknown U Epithel Cells (Auto) 14.0 /HPF (0-13.0) H 12/08/21 Unknown Urine Bacteria (Auto) 1+ /HPF (Negative) 12/08/21 Unknown Urine Mucus Few /HPF 12/08/21 Unknown Urine Yeast (Budding) Few /HPF 12/08/21 Unknown Coronavirus (PCR) Negative (Negative) 12/09/21 09:40 Verma/IV: Voiding Method Indwelling Catheter Active Medications - Current Medications Current Medications: Generic Name Dose Route Start Last Admin Trade Name Freq PRN Reason Stop Dose Admin Acetaminophen 650 mg 12/08/21 05:19 12/14/21 15:30 Acetaminophen 325 Mg Tab PO 650 mg Q4H PRN Administration Pain MILD(1-3)/Fever >100.5/HENDRIX Albuterol 2.5 mg 12/15/21 14:00 Albuterol 2.5 Mg/3 Ml Nebu IH Q4HRT PRN Shortness Of Breath Albuterol/Ipratropium 1 ampul 12/15/21 20:00 12/16/21 13:59 Ipratropium/Albuterol Sulfate 3 Ml Ampul.Neb IH 1 ampul TIDRT SHANELL Administration Allopurinol 100 mg 12/15/21 10:00 12/16/21 10:29 Allopurinol 100 Mg Tab PO 100 mg QDAY SHANELL Administration Arformoterol Tartrate 15 mcg 12/15/21 20:00 12/16/21 09:50 Arformoterol 15 Mcg/2 Ml Nebu IH 15 mcg Q12HRT SHANELL Administration Aspirin 325 mg 12/09/21 10:00 12/16/21 10:29 Aspirin Ec 325 Mg Tab PO 325 mg QDAY SHANELL Administration Atorvastatin Calcium 40 mg 12/10/21 22:00 12/15/21 22:07 Atorvastatin 40 Mg Tab PO 40 mg QHS SHANELL Administration Budesonide 0.5 mg 12/15/21 20:00 12/16/21 09:50 Budesonide 0.5 Mg/2 Ml Nebu IH 0.5 mg Q12HRT SHANELL Administration Carvedilol 3.125 mg 12/14/21 10:00 12/16/21 10:30 Carvedilol 3.125 Mg Tab PO 3.125 mg BID SHANELL Administration Enoxaparin Sodium 40 mg 12/15/21 22:00 12/15/21 22:06 Enoxaparin 40 Mg/0.4 Ml Inj SUB-Q 40 mg QDAY@2200 SHANELL Administration Protocol Furosemide 40 mg 12/14/21 10:00 12/16/21 10:29 Furosemide 40 Mg Tab PO 40 mg QDAY SHANELL Administration Levothyroxine Sodium 100 mcg 12/09/21 06:00 12/16/21 06:17 Levothyroxine 100 Mcg Tab PO 100 mcg DAILY@0600 SHANELL Administration Magnesium Hydroxide 30 ml 12/08/21 05:19 Magnesium Hydroxide (Mom) Oral Liqd Udc PO Q4H PRN Constipation Morphine Sulfate 2 mg 12/08/21 05:19 Morphine 2 Mg/1 Ml Inj IV Q4H PRN Pain, Moderate (4-6) Morphine Sulfate 4 mg 12/08/21 05:19 Morphine 4 Mg/1 Ml Inj IV Q4H PRN Pain , Severe (7-10) Morphine Sulfate 2 mg 12/08/21 05:19 Morphine 2 Mg/1 Ml Inj IV Q5MIN PRN Chest Pain unrelieved by NTG Naproxen 375 mg 12/11/21 16:37 12/12/21 05:53 Naproxen 375 Mg Tab PO 375 mg Q12H PRN Administration Pain, Mild (1-3) Ondansetron HCl 4 mg 12/08/21 05:19 Ondansetron 4 Mg/2 Ml Inj IV Q8H PRN Nausea And Vomiting Potassium Chloride 20 meq 12/13/21 13:00 12/15/21 09:56 Potassium Chloride Er 20 Meq Tab PO 20 meq QDAY SHANELL Administration Sodium Chloride 10 ml 12/08/21 10:00 12/16/21 10:29 Sodium Chloride 0.9% 10 Ml Flush Syringe IV 10 ml BID SHANELL Administration Sodium Chloride 10 ml 12/08/21 05:19 Sodium Chloride 0.9% 10 Ml Flush Syringe IV PRN PRN LINE FLUSH Nutrition/Malnutrition Assess - Dietary Evaluation Nutrition/Malnutrition Findings: Nutrition Notes Start: 12/08/21 18:44 Freq: Status: Active Protocol: Document 12/15/21 15:06 DELANO (Rec: 12/15/21 15:31 DELANO [id number]) Nutrition Notes Initial or Follow up Reassessment Current Diagnosis Acute Kidney Injury,CKD(stage I-IV),Hypertension, Hyperlipidemia Other Pertinent Diagnosis HFpEF, STEMI II, Hypothyroidism. Current Diet Cardiac Diet (since B 12/08). Labs/Tests 12/15: Cl 97.3, CO2 31, BUN 23 , Glu 101. Pertinent Medications 12/15: KCl 20mEq, others nutritionally unremarkable. Height 5 ft 4 in Weight 177 kg [place] Body Weight (kg) 54.54 BMI 66.9 Weight change and time frame 0.1 Kg body weight loss in 1 week reported. Weight Status Morbidly Obese Subjective/Other Information RD consult for routine F/U on Dietary Advancement. No reports available on Pt's PO intake of meals at the time , but Pt is tolerating PO Diet well, according to Progress notes. Pt is on Nasal Cannula, O2 saturation @ 96%, according to Physical Assessment History notes. Pt presents skin tears in R- Flank and Sacral areas, according to Physical Assessment History notes. Pt clinically stable for discharge, awaiting for SNF placement, according to Progress notes. Percent of energy/protein needs met: Prescribed Cardiac Diet provides for energy/protein needs (2,230 Kcal/85 g) during LOS. Burn Absent Trauma Absent GI Symptoms None Food Allergy No Skin Integrity/Comment skin tears in R-Flank and Sacrum. Minimum of two criteria No #1 Nutrition Diagnosis No nutrition diagnosis at this time Is patient on ventilator? No Is Patient Ambulatory and/or Out of Bed No REE-([place]-St. Jeor-confined to bed) 2752.308 Kcal/Kg value to use for calculation 8 Approximate Energy Requirements Using 1416 kcal/Kg Calculation Used for Recommendations Kcal/kg Additional Notes Protein: 0.8-1.2 g/Kg AdjBW; 85-127 g/day. Fluids: 1 ml/Kcal, or as per MD. Nutrition Intervention Change Diet Order: Continue Cardiac Diet. Revisit per MD consult or patient Sign Off request: Additional Comments Continue monitoring food tolerance, %PO intake of meals , and BM.
[2021-12-16] MEDS: ENOXAPARIN 40 MG/0.4 ML INJ SUB-Q SCH (21:02)
[2021-12-17] MEDS: NAPROXEN 375 MG TAB PO PRN (04:37)
[2021-12-17] MEDS: LEVOTHYROXINE 100 MCG TAB PO SCH (05:20)
[2021-12-17] MEDS: IPRATROPIUM/ALBUTEROL SULFATE 3 ML AMPUL.NEB IH SCH ×3 (07:53→21:33)
[2021-12-17] MEDS: ARFORMOTEROL 15 MCG/2 ML NEBU IH SCH ×2 (07:53→21:20)
[2021-12-17] MEDS: BUDESONIDE 0.5 MG/2 ML NEBU IH SCH ×2 (07:54→21:20)
[2021-12-17] MEDS: ASPIRIN EC 325 MG TAB PO SCH (09:40)
[2021-12-17] MEDS: allopurinoL 100 MG TAB PO SCH (09:40)
[2021-12-17] MEDS: POTASSIUM CHLORIDE ER 20 MEQ TAB PO SCH (09:40)
[2021-12-17] MEDS: carvediloL 3.125 MG TAB PO SCH ×2 (09:40→21:32)
--- NOTE | 2021-12-17 11:35 | Progress Note ---
Assessment and Plan Assessment and plan: --Hypokalemia, likely due to diuresis Continue to replete potassium as needed and monitor BMP --Acute versus acute on chronic diastolic congestive heart failure: patient has elevated proBNP findings of congestive heart failure on chest x-ray s/p IV diuretics now changed to p.o. Continue beta-blockers input output monitoring Daily weights low-sodium diet and fluid restriction 2D echo showed preserved EF with diastolic dysfunction --Acute on chronic hypoxic respiratory failure; Likely due to underlying obesity hypoventilation syndrome, chronic CHF Patient on 2 L nasal cannula O2 at home Wean off O2 as tolerated, nebs as needed --Elevated troponin/non-ST elevation RI probably type II Closely monitor cardiac enzymes, serial EKGs, follow echocardiogram Continue aspirin beta-blockers JOSÉ ANTONIO inhibitors nitrates and statins Cardiology consulted, s/p stress test showed no reversible ischemia --Acute kidney injury; vasomotor nephropathy Monitor renal function, avoid nephrotoxin, consult nephrology if no improvement Normal findings on renal ultrasound --Elevated LFTs/probably secondary to liver congestion Patient does not have any history of alcohol use Closely monitor --Dyslipidemia : Low-cholesterol diet Patient's LFTs are high unable to give statin Closely monitor --History of hypothyroidism ; Resume home Synthroid Closely monitor check thyroid functions --morbid obesity; BMI 67.0; Patient may need dietary modification, exercise as tolerated and weight reduction when medically stable Heart weight partly secondary to fluid overload and congestive heart failure Treat the underlying cause. --Oral thrush, placed on nystatin swish and swallow --Full CODE STATUS; --DVT prophylaxis; Subcu Lovenox renal dose --Advance care plan: Patient is in severe distress, patient's diagnosis discussed with the patient follow BMP. Cont Lasix to p.o. Patient clinically stable for discharge, pending SNF placement Continue to provide supportive care Disposition; patient is clinically stable for discharge, pending SNF placement Brief history and Hospital course; 66-year-old female patient with significant history of CHF, COPD, hypertension, morbid obesity was admitted through emergency room with acute on chronic hypoxic respiratory failure requiring supplemental oxygen as well as acute exacerbation of diastolic congestive heart failure, patient was evaluated by jewel setter medications optimized, patient had general debility, PT evaluated the patient and recommended subacute rehab placement. Currently patient is hemodynamically and clinically stable pending SNF placement History Interval history: I have seen and examined the patient at the bedside Patient's chart and medications reviewed No new events reported by the nursing Patient is awaiting placement Vital signs noted Hospitalist Physical - Constitutional Vitals: Temp Pulse Resp BP Pulse Ox 98.6 F 87 20 116/52 98 12/17/21 07:11 12/17/21 08:20 12/17/21 08:20 12/17/21 07:11 12/17/21 08:06 General appearance: Present: no acute distress, well-nourished, obese (Morbidly obese) - EENT Eyes: Present: PERRL, EOM intact - Neck Neck: Present: supple, normal ROM - Respiratory Respiratory effort: normal Respiratory: bilateral: diminished, negative: rales, rhonchi, wheezing - Cardiovascular Rhythm: regular Heart Sounds: Present: S1 & S2 - Extremities Extremities: no ischemia, No edema - Abdominal General gastrointestinal: soft, non-tender, non-distended, normal bowel sounds - Integumentary Integumentary: Present: clear, warm - Psychiatric Psychiatric: appropriate mood/affect, cooperative - Neurologic Neurologic: moves all extremities HEART Score - HEART Score Troponin: Troponin T 0.047 ng/mL (0.00-0.029) H D 12/08/21 09:41 Results - Labs CBC & Chem 7: 12/16/21 04:03 12/16/21 04:03 Labs: Laboratory Last Values WBC 9.8 K/mm3 (4.5-11.0) 12/16/21 04:03 RBC 4.00 M/mm3 (3.65-5.03) 12/16/21 04:03 Hgb 10.3 gm/dl (10.1-14.3) 12/16/21 04:03 Hct 31.9 % (30.3-42.9) 12/16/21 04:03 MCV 80 fl (79-97) 12/16/21 04:03 MCH 26 pg (28-32) L 12/16/21 04:03 MCHC 32 % (30-34) 12/16/21 04:03 RDW 14.6 % (13.2-15.2) 12/16/21 04:03 Plt Count 391 K/mm3 (140-440) 12/16/21 04:03 Add Manual Diff Complete 12/16/21 04:03 Total Counted 100 12/16/21 04:03 Seg Neuts % (Manual) 80.0 % (40.0-70.0) H 12/16/21 04:03 Band Neutrophils % 2.0 % 12/16/21 04:03 Lymphocytes % (Manual) 10.0 % (13.4-35.0) L 12/16/21 04:03 Reactive Lymphs % (Man) 0 % 12/16/21 04:03 Monocytes % (Manual) 6.0 % (0.0-7.3) 12/16/21 04:03 Eosinophils % (Manual) 1.0 % (0.0-4.3) 12/16/21 04:03 Basophils % (Manual) 1.0 % (0.0-1.8) 12/16/21 04:03 Metamyelocytes % 0 % 12/16/21 04:03 Myelocytes % 0 % 12/16/21 04:03 Promyelocytes % 0 % 12/16/21 04:03 Blast Cells % 0 % 12/16/21 04:03 Nucleated RBC % Not Reportable 12/16/21 04:03 Seg Neutrophils # Man 7.8 K/mm3 (1.8-7.7) H 12/16/21 04:03 Band Neutrophils # 0.2 K/mm3 12/16/21 04:03 Lymphocytes # (Manual) 1.0 K/mm3 (1.2-5.4) L 12/16/21 04:03 Abs React Lymphs (Man) 0.0 K/mm3 12/16/21 04:03 Monocytes # (Manual) 0.6 K/mm3 (0.0-0.8) 12/16/21 04:03 Eosinophils # (Manual) 0.1 K/mm3 (0.0-0.4) 12/16/21 04:03 Basophils # (Manual) 0.1 K/mm3 (0.0-0.1) 12/16/21 04:03 Metamyelocytes # 0.0 K/mm3 12/16/21 04:03 Myelocytes # 0.0 K/mm3 12/16/21 04:03 Promyelocytes # 0.0 K/mm3 12/16/21 04:03 Blast Cells # 0.0 K/mm3 12/16/21 04:03 WBC Morphology Not Reportable 12/16/21 04:03 Hypersegmented Neuts Not Reportable 12/16/21 04:03 Hyposegmented Neuts Not Reportable 12/16/21 04:03 Hypogranular Neuts Not Reportable 12/16/21 04:03 Smudge Cells Few 12/16/21 04:03 Toxic Granulation Not Reportable 12/16/21 04:03 Toxic Vacuolation Not Reportable 12/16/21 04:03 Dohle Bodies Not Reportable 12/16/21 04:03 Pelger-Huet Anomaly Not Reportable 12/16/21 04:03 Fernanda Rods Not Reportable 12/16/21 04:03 Platelet Estimate Consistent w auto 12/16/21 04:03 Clumped Platelets Not Reportable 12/16/21 04:03 Plt Clumps, EDTA Not Reportable 12/16/21 04:03 Large Platelets Rare 12/16/21 04:03 Giant Platelets Not Reportable 12/16/21 04:03 Platelet Satelliting Not Reportable 12/16/21 04:03 Plt Morphology Comment Not Reportable 12/16/21 04:03 RBC Morphology Not Reportable 12/16/21 04:03 Dimorphic RBCs Not Reportable 12/16/21 04:03 Polychromasia Not Reportable 12/16/21 04:03 Hypochromasia 1+ 12/16/21 04:03 Poikilocytosis Not Reportable 12/16/21 04:03 Anisocytosis Not Reportable 12/16/21 04:03 Microcytosis Not Reportable 12/16/21 04:03 Macrocytosis Not Reportable 12/16/21 04:03 Spherocytes Not Reportable 12/16/21 04:03 Pappenheimer Bodies Not Reportable 12/16/21 04:03 Sickle Cells Not Reportable 12/16/21 04:03 Target Cells Not Reportable 12/16/21 04:03 Tear Drop Cells Not Reportable 12/16/21 04:03 Ovalocytes Not Reportable 12/16/21 04:03 Helmet Cells Not Reportable 12/16/21 04:03 [place] Bodies Not Reportable 12/16/21 04:03 [place] Rings Not Reportable 12/16/21 04:03 Ronni Cells Not Reportable 12/16/21 04:03 Bite Cells Not Reportable 12/16/21 04:03 Crenated Cell Not Reportable 12/16/21 04:03 Elliptocytes Not Reportable 12/16/21 04:03 Acanthocytes (Spur) Not Reportable 12/16/21 04:03 Rouleaux Not Reportable 12/16/21 04:03 Hemoglobin C Crystals Not Reportable 12/16/21 04:03 Schistocytes Not Reportable 12/16/21 04:03 Malaria parasites Not Reportable 12/16/21 04:03 Aftab Bodies Not Reportable 12/16/21 04:03 Hem Pathologist Commnt No 12/16/21 04:03 D-Dimer > 2000 ng/mlDDU (0-234) H 12/08/21 20:37 Sodium 139 mmol/L (137-145) 12/16/21 04:03 Potassium 3.3 mmol/L (3.6-5.0) L 12/16/21 04:03 Chloride 97.6 mmol/L (98-107) L 12/16/21 04:03 Carbon Dioxide 30 mmol/L (22-30) 12/16/21 04:03 Anion Gap 15 mmol/L 12/16/21 04:03 BUN 13 mg/dL (7-17) 12/16/21 04:03 Creatinine 0.6 mg/dL (0.6-1.2) 12/16/21 04:03 Estimated GFR > 60 ml/min 12/16/21 04:03 BUN/Creatinine Ratio 22 % 12/16/21 04:03 Glucose 98 mg/dL (65-100) 12/16/21 04:03 Uric Acid 15.4 mg/dL (3.5-7.6) H 12/12/21 11:20 Calcium 9.7 mg/dL (8.4-10.2) 12/16/21 04:03 Ferritin 1347.0 ng/mL (10.0-200.0) H 12/08/21 20:37 Total Bilirubin 1.00 mg/dL (0.1-1.2) 12/08/21 09:41 Direct Bilirubin Cancelled 12/08/21 09:41 AST 99 units/L (5-40) H 12/08/21 09:41 ALT 49 units/L (7-56) 12/08/21 09:41 Alkaline Phosphatase 232 units/L (35-129) H 12/08/21 09:41 Lactate Dehydrogenase 344 units/L (91-180) H 12/08/21 20:37 Troponin T 0.047 ng/mL (0.00-0.029) H D 12/08/21 09:41 C-Reactive Protein 38.60 mg/dL (0.00-1.30) H 12/08/21 20:37 NT-Pro-B Natriuret Pep 4313 pg/mL (0-900) H 12/07/21 21:23 Total Protein 6.8 g/dL (6.3-8.2) 12/08/21 09:41 Albumin 3.4 g/dL (3.9-5) L 12/08/21 09:41 Albumin/Globulin Ratio 1.0 % 12/08/21 09:41 Triglycerides 310 mg/dL (2-149) H 12/08/21 09:41 Cholesterol 259 mg/dL (50-199) H 12/08/21 09:41 LDL Cholesterol Direct 133 mg/dL (50-130) H 12/08/21 09:41 HDL Cholesterol 25 mg/dL (40-59) L 12/08/21 09:41 Cholesterol/HDL Ratio 10.36 % 12/08/21 09:41 Urine Color Gita (Yellow) 12/08/21 Unknown Urine Turbidity Slightly-cloudy (Clear) 12/08/21 Unknown Urine pH 5.0 (5.0-7.0) 12/08/21 Unknown Ur Specific Mcdonald 1.017 (1.003-1.030) 12/08/21 Unknown Urine Protein 30 mg/dl mg/dL (Negative) 12/08/21 Unknown Urine Glucose (UA) Neg mg/dL (Negative) 12/08/21 Unknown Urine Ketones Neg mg/dL (Negative) 12/08/21 Unknown Urine Blood Sm (Negative) 12/08/21 Unknown Urine Nitrite Neg (Negative) 12/08/21 Unknown Urine Bilirubin Neg (Negative) 12/08/21 Unknown Urine Urobilinogen 4.0 mg/dL (<2.0) 12/08/21 Unknown Ur Leukocyte Esterase Neg (Negative) 12/08/21 Unknown Urine WBC (Auto) 7.0 /HPF (0.0-6.0) H 12/08/21 Unknown Urine RBC (Auto) 11.0 /HPF (0.0-6.0) 12/08/21 Unknown U Epithel Cells (Auto) 14.0 /HPF (0-13.0) H 12/08/21 Unknown Urine Bacteria (Auto) 1+ /HPF (Negative) 12/08/21 Unknown Urine Mucus Few /HPF 12/08/21 Unknown Urine Yeast (Budding) Few /HPF 12/08/21 Unknown Coronavirus (PCR) Negative (Negative) 12/09/21 09:40 Verma/IV: Voiding Method Indwelling Catheter Active Medications - Current Medications Current Medications: Generic Name Dose Route Start Last Admin Trade Name Freq PRN Reason Stop Dose Admin Acetaminophen 650 mg 12/08/21 05:19 12/14/21 15:30 Acetaminophen 325 Mg Tab PO 650 mg Q4H PRN Administration Pain MILD(1-3)/Fever >100.5/HENDRIX Albuterol 2.5 mg 12/15/21 14:00 Albuterol 2.5 Mg/3 Ml Nebu IH Q4HRT PRN Shortness Of Breath Albuterol/Ipratropium 1 ampul 12/15/21 20:00 12/17/21 07:53 Ipratropium/Albuterol Sulfate 3 Ml Ampul.Neb IH 1 ampul TIDRT SHANELL Administration Allopurinol 100 mg 12/15/21 10:00 12/17/21 09:40 Allopurinol 100 Mg Tab PO 100 mg QDAY SHANELL Administration Arformoterol Tartrate 15 mcg 12/15/21 20:00 12/17/21 07:53 Arformoterol 15 Mcg/2 Ml Nebu IH 15 mcg Q12HRT SHANELL Administration Aspirin 325 mg 12/09/21 10:00 12/17/21 09:40 Aspirin Ec 325 Mg Tab PO 325 mg QDAY SHANELL Administration Atorvastatin Calcium 40 mg 12/10/21 22:00 12/16/21 21:02 Atorvastatin 40 Mg Tab PO 40 mg QHS SHANELL Administration Budesonide 0.5 mg 12/15/21 20:00 12/17/21 07:54 Budesonide 0.5 Mg/2 Ml Nebu IH 0.5 mg Q12HRT SHANELL Administration Carvedilol 3.125 mg 12/14/21 10:00 12/17/21 09:40 Carvedilol 3.125 Mg Tab PO 3.125 mg BID SHANELL Administration Enoxaparin Sodium 40 mg 12/15/21 22:00 12/16/21 21:02 Enoxaparin 40 Mg/0.4 Ml Inj SUB-Q 40 mg QDAY@2200 [facility] Administration Protocol Furosemide 40 mg 12/14/21 10:00 12/16/21 10:29 Furosemide 40 Mg Tab PO 40 mg QDAY SHANELL Administration Levothyroxine Sodium 100 mcg 12/09/21 06:00 12/17/21 05:20 Levothyroxine 100 Mcg Tab PO 100 mcg DAILY@0600 [facility] Administration Magnesium Hydroxide 30 ml 12/08/21 05:19 Magnesium Hydroxide (Mom) Oral Liqd Udc PO Q4H PRN Constipation Morphine Sulfate 2 mg 12/08/21 05:19 Morphine 2 Mg/1 Ml Inj IV Q4H PRN Pain, Moderate (4-6) Morphine Sulfate 4 mg 12/08/21 05:19 Morphine 4 Mg/1 Ml Inj IV Q4H PRN Pain , Severe (7-10) Morphine Sulfate 2 mg 12/08/21 05:19 Morphine 2 Mg/1 Ml Inj IV Q5MIN PRN Chest Pain unrelieved by NTG Naproxen 375 mg 12/11/21 16:37 12/17/21 04:37 Naproxen 375 Mg Tab PO 375 mg Q12H PRN Administration Pain, Mild (1-3) Ondansetron HCl 4 mg 12/08/21 05:19 Ondansetron 4 Mg/2 Ml Inj IV Q8H PRN Nausea And Vomiting Potassium Chloride 20 meq 12/13/21 13:00 12/17/21 09:40 Potassium Chloride Er 20 Meq Tab PO 20 meq QDAY SHANELL Administration Sodium Chloride 10 ml 12/08/21 10:00 12/17/21 09:41 Sodium Chloride 0.9% 10 Ml Flush Syringe IV 10 ml BID SHANELL Administration Sodium Chloride 10 ml 12/08/21 05:19 Sodium Chloride 0.9% 10 Ml Flush Syringe IV PRN PRN LINE FLUSH Nutrition/Malnutrition Assess - Dietary Evaluation Nutrition/Malnutrition Findings: Nutrition Notes Start: 12/08/21 18:44 Freq: Status: Active Protocol: Document 12/15/21 15:06 DELANO (Rec: 12/15/21 15:31 DELANO [id number]) Nutrition Notes Initial or Follow up Reassessment Current Diagnosis Acute Kidney Injury,CKD(stage I-IV),Hypertension, Hyperlipidemia Other Pertinent Diagnosis HFpEF, STEMI II, Hypothyroidism. Current Diet Cardiac Diet (since B 12/08). Labs/Tests 12/15: Cl 97.3, CO2 31, BUN 23 , Glu 101. Pertinent Medications 12/15: KCl 20mEq, others nutritionally unremarkable. Height 5 ft 4 in Weight 177 kg [place] Body Weight (kg) 54.54 BMI 66.9 Weight change and time frame 0.1 Kg body weight loss in 1 week reported. Weight Status Morbidly Obese Subjective/Other Information RD consult for routine F/U on Dietary Advancement. No reports available on Pt's PO intake of meals at the time , but Pt is tolerating PO Diet well, according to Progress notes. Pt is on Nasal Cannula, O2 saturation @ 96%, according to Physical Assessment History notes. Pt presents skin tears in R- Flank and Sacral areas, according to Physical Assessment History notes. Pt clinically stable for discharge, awaiting for SNF placement, according to Progress notes. Percent of energy/protein needs met: Prescribed Cardiac Diet provides for energy/protein needs (2,230 Kcal/85 g) during LOS. Burn Absent Trauma Absent GI Symptoms None Food Allergy No Skin Integrity/Comment skin tears in R-Flank and Sacrum. Minimum of two criteria No #1 Nutrition Diagnosis No nutrition diagnosis at this time Is patient on ventilator? No Is Patient Ambulatory and/or Out of Bed No REE-([facility]-confined to bed) 2752.308 Kcal/Kg value to use for calculation 8 Approximate Energy Requirements Using 1416 kcal/Kg Calculation Used for Recommendations Kcal/kg Additional Notes Protein: 0.8-1.2 g/Kg AdjBW; 85-127 g/day. Fluids: 1 ml/Kcal, or as per MD. Nutrition Intervention Change Diet Order: Continue Cardiac Diet. Revisit per MD consult or patient Sign Off request: Additional Comments Continue monitoring food tolerance, %PO intake of meals , and BM.
--- NOTE | 2021-12-17 11:36 | Progress Note ---
Assessment and Plan - Patient Problems (1) CHF exacerbation Current Visit: Yes Status: Acute Qualifiers: Qualified Code(s): I50.9 - Heart failure, unspecified Subjective Date of service: 12/17/21 Interval history: NO CV C/O Objective Vital Signs Temp Pulse Pulse Resp Resp BP Pulse Ox 12/17/21 08:20 87 20 12/17/21 08:06 98 12/17/21 07:54 95 12/17/21 07:11 98.6 F 88 18 116/52 95 12/17/21 04:09 90 117/52 93 12/16/21 23:33 80 18 98 12/16/21 22:54 98 12/16/21 21:00 98.8 F 86 18 153/64 98 12/16/21 20:31 89 20 98 12/16/21 20:00 85 12/16/21 16:40 98.6 F 90 18 152/72 96 12/16/21 14:00 88 20 - Physical Examination General: Other (obese) HEENT: Positive: PERRL, Normocephaly, Mucus Membranes Moist Neck: Positive: neck supple, trachea midline, JVD/HJR Cardiac: Positive: Reg Rate and Rhythm Lungs: Positive: clear to auscultation Neuro: Positive: Grossly Intact Abdomen: Positive: Unremarkable, Soft, Active Bowel Sounds Extremities: Present: Other (R.FOOT - CYST -PLANTAR SURFACE,,,GREAT TOE PAIN). Absent: edema
[2021-12-17] MEDS: FUROSEMIDE 40 MG TAB PO SCH (12:34)
[2021-12-17] MEDS: ENOXAPARIN 40 MG/0.4 ML INJ SUB-Q SCH (21:32)
[2021-12-18] MEDS: NAPROXEN 375 MG TAB PO PRN (00:14)
[2021-12-18] MEDS: LEVOTHYROXINE 100 MCG TAB PO SCH (05:20)
[2021-12-18] MEDS: BUDESONIDE 0.5 MG/2 ML NEBU IH SCH (07:31)
[2021-12-18] MEDS: ARFORMOTEROL 15 MCG/2 ML NEBU IH SCH (07:31)
[2021-12-18] MEDS: IPRATROPIUM/ALBUTEROL SULFATE 3 ML AMPUL.NEB IH SCH ×2 (07:31→14:00)
[2021-12-18] MEDS: ASPIRIN EC 325 MG TAB PO SCH (09:15)
[2021-12-18] MEDS: POTASSIUM CHLORIDE ER 20 MEQ TAB PO SCH (09:16)
[2021-12-18] MEDS: FUROSEMIDE 40 MG TAB PO SCH (09:16)
[2021-12-18] MEDS: allopurinoL 100 MG TAB PO SCH (09:16)
[2021-12-18] MEDS: carvediloL 3.125 MG TAB PO SCH (09:16)
--- NOTE | 2021-12-18 10:15 | Progress Note ---
Assessment and Plan - Patient Problems (1) Respiratory insufficiency Current Visit: Yes Status: Acute Plan to address problem: 66-year-old woman who is morbidly obese, presents with shortness of breath and hypoxemia. Likely at high risk for obstructive hypoventilation syndrome. Cardiac work-up is unremarkable with negative ECGs, hyperdynamic left ventricular systolic function on echocardiogram. A Lexiscan thallium stress test done on this presentation was also normal. Conservative cardiac management and follow-up is recommended. Subjective Date of service: 12/18/21 Principal diagnosis: Respiratory insufficiency Interval history: 66-year-old [place] resident who is morbidly obese, presents with shortness of breath and hypoxemia, admitted a week ago with respiratory insufficiency. Chest x-ray showed some cardiomegaly but clear lungs. COVID-19 test was negative. Cardiology consultation was requested for borderline troponin elevation of 0.04 and 0.09. ECG was benign. Echocardiogram showed hyperdynamic left ventricular systolic function with mild to moderate concentric left ventricle hypertrophy. Notably, there was a mean LVOT gradient of 15 mmHg, likely related to hyperdynamic left ventricular function. There was normal size right heart chambers, but moderate to severe pulmonary hypertension with pulmonary artery systolic pressures greater than 50. Objective Vital Signs Temp Pulse Pulse Pulse Resp Resp Resp 12/18/21 07:31 90 20 12/18/21 07:30 12/18/21 07:27 98.0 F 89 18 12/18/21 04:15 99.3 F 96 H 20 12/17/21 23:47 99.6 F 89 20 12/17/21 22:40 12/17/21 21:20 84 87 18 18 12/17/21 21:05 99.9 F H 90 20 12/17/21 20:16 12/17/21 20:00 87 12/17/21 15:36 98.2 F 82 18 12/17/21 14:20 85 20 12/17/21 12:30 98.4 F 90 18 BP BP Pulse Ox 12/18/21 07:31 12/18/21 07:30 94 12/18/21 07:27 138/72 94 12/18/21 04:15 140/55 94 12/17/21 23:47 147/73 93 12/17/21 22:40 100 12/17/21 21:20 12/17/21 21:05 137/75 96 12/17/21 20:16 98 12/17/21 20:00 12/17/21 15:36 130/67 96 12/17/21 14:20 12/17/21 12:30 126/58 96 - Physical Examination General: No Apparent Distress, Other (Morbidly obese) HEENT: Positive: PERRL, Normocephaly, Mucus Membranes Moist Neck: Positive: neck supple, trachea midline, JVD/HJR Cardiac: Positive: Reg Rate and Rhythm Lungs: Positive: Decreased Breath Sounds Neuro: Positive: Grossly Intact Abdomen: Positive: Unremarkable, Soft, Active Bowel Sounds Skin: Positive: Clear Extremities: Present: Other (R.FOOT - CYST -PLANTAR SURFACE,,,GREAT TOE PAIN). Absent: edema
--- NOTE | 2021-12-18 10:30 | Discharge Summary ---
Providers - Providers Date of Admission: 12/08/21 03:45 Date of discharge: 12/18/21 Attending physician: BHAVESH العراقي MD 12/08/21 05:19 Consult to Physician [CONS] Routine Comment: Consulting Provider: PADMINI FARFAN Physician Instructions: Reason For Exam: CHF exacerbation 12/08/21 08:35 Consult to Physician [CONS] Routine Comment: Consulting Provider: JULIUS RUST Physician Instructions: Reason For Exam: RAMA 12/10/21 13:16 Physical Therapy Evaluation and Treat [CONS] Routine Comment: Reason For Exam: Debility Primary care physician: VICKIE NICHOLS Hospitalization Reason for admission: CHF exacerbation Condition: Stable Hospital course: 66-year-old female history of CHF, COPD and hypertension who presented to the ED with shortness of breath. She was found to be hypoxic and placed on nonrebreather. She was admitted for CHF exacerbation. Cardiology was consulted. Echocardiogram showed mild diastolic dysfunction with ejection fraction of 50 to 55%. She was also found to be have an RAMA and nephrology was consulted. Renal ultrasound showed no acute renal abnormality. Stress test was performed and showed a fixed inferior defect without acute ischemia. Patient was diuresed with improvement in symptoms. Once stable, patient was discharged home with home health. Disposition: HOME HEALTH CARE SERVICE Final Discharge Diagnosis (Prints w/discharge instructions): Acute on chronic diastolic heart failure. Non-ST elevation, type II. Acute kidney injury secondary to vasomotor nephropathy. Elevated liver enzyme. Hyperlipidemia. Hypothyroidism. Morbid obesity. Oral thrush Time spent for discharge: 35 minutes Core Measure Documentation - Palliative Care Palliative Care/ Comfort Measures: Not Applicable - Core Measures Any of the following diagnoses?: heart failure - Heart Failure Discharge Requirements JOSÉ ANTONIO/ARB for LVSD if EF <40%: Not Applicable Beta kaylee at discharge: Yes Exam - Physical Exam Narrative exam: GENERAL: Well-developed well-nourished. In no acute distress. HEENT: Normocephalic. Atraumatic. NECK: Supple. CHEST/LUNGS: CTAB on room air HEART/CARDIOVASCULAR: RRR. No murmur, rubs or gallops appreciated. ABDOMEN: +BS. NT/ND. NEURO: No focal motor deficit. Follows all commands. EXTREMITIES: No cyanosis, clubbing or edema. PSYCH: Cooperative. - Constitutional Vitals: Temp Pulse Resp BP Pulse Ox 98.0 F 90 20 138/72 94 12/18/21 07:27 12/18/21 07:31 12/18/21 07:31 12/18/21 07:27 12/18/21 07:30 Plan Care Plan Goals: Please follow-up with your primary care provider and seam presser after discharge. Efforts to find a rehab facility for you have been futile. We have arranged for home health with physical therapy to come to your home several times per week. Please take all medications as prescribed. Please limit your fluid intake throughout the day to less than 1.5 L (this includes drinks, ice and foods with fluid content) Follow up with: JOSEPHINE BANDA MD [Staff Physician] - 7 Days VICKIE NICHOLS MD [Primary Care Provider] - 3-5 Days Prescriptions: AtorvaSTATin [Lipitor] 40 mg PO QHS #30 tablet carvediloL [Coreg] 3.125 mg PO BID 30 Days #60 tablet Aspirin EC [Halfprin EC] 81 mg PO QDAY #30 tablet. Potassium Chloride [K-Dur] 10 meq PO QDAY 30 Days #30 tab Furosemide [Lasix TAB] 40 mg PO QDAY 30 Days #30 tablet Nystatin [Nystatin SUSP] 500,000 unit PO TID 5 Days
[2021-12-18] MEDS: ACETAMINOPHEN 325 MG TAB PO PRN (10:34)
[2021-12-18 12:34] VITALS: BP 136/86
== END 2021-12-18 15:40 | disposition home health service (06) | DRG 280 ==
LOC: ED 20:47 → 4A 12-08 03:45
PROVIDERS: ADMIT Internal Medicine Geriatric Medicine; ATTEND Student in an Organized Health Care Education/Training Program
PROC: 5A09357 Assistance with Respiratory Ventilation, Less than 24 Consecutive Hours, Continuous Positive Airway Pressure (ICD-10-PCS; principal; 2021-12-16)
DX: I13.0 Hypertensive heart and chronic kidney disease with heart failure and stage 1 through stage 4 chronic kidney disease, or unspecified chronic kidney disease (principal); N17.0 Acute kidney failure with tubular necrosis; I21.A1 Myocardial infarction type 2; J96.21 Acute and chronic respiratory failure with hypoxia; I50.43 Acute on chronic combined systolic (congestive) and diastolic (congestive) heart failure; E87.0 Hyperosmolality and hypernatremia; B37.0 Candidal stomatitis; Z68.44 Body mass index [BMI] 60.0-69.9, adult; Z20.822 Contact with and (suspected) exposure to COVID-19; E66.01 Morbid (severe) obesity due to excess calories; I27.20 Pulmonary hypertension, unspecified; E87.6 Hypokalemia; I42.2 Other hypertrophic cardiomyopathy; E03.9 Hypothyroidism, unspecified; E78.5 Hyperlipidemia, unspecified; N18.9 Chronic kidney disease, unspecified; T50.2X5A Adverse effect of carbonic-anhydrase inhibitors, benzothiadiazides and other diuretics, initial encounter; K76.1 Chronic passive congestion of liver; I25.10 Atherosclerotic heart disease of native coronary artery without angina pectoris; J44.9 Chronic obstructive pulmonary disease, unspecified; Z79.899 Other long term (current) drug therapy; Z71.3 Dietary counseling and surveillance; Z88.8 Allergy status to other drugs, medicaments and biological substances; Y92.89 Other specified places as the place of occurrence of the external cause
CPT/HCPCS: 36415; 71045; 76770; 78452; 80048; 80053; 80061; 81001; 82728; 83615; 83880; 84484; 84550; 85007; 85025; 85027; 85379; 86140; 87086; 93005; 93017; 93306; 94640; 94660; 94668; 94760; G0378; A9502; C8929; J1650; J1940; J2785; J2930; J3480; U0003